=== PATIENT | female | born 1960 | race Caucasian/White ===

== ENCOUNTER 2022-11-29 09:52 | Emergency (ER) | payer OTHER, SELFPAY ==
--- NOTE | 2022-11-29 09:58 | ED.GENADULT ---
HPI - General Adult General Chief complaint: Neck Pain/Injury Stated complaint: congestion,pain behind rt ear Time Seen by Provider: 11/29/22 09:58 Source: patient Mode of arrival: ambulatory Limitations: no limitations History of Present Illness HPI narrative: 62-year-old female patient presents to the [facility] with complaints of pain to the head behind the right ear, sore throat, congestion, runny nose, sinus drainage and slight cough. Patient denies any fevers, body aches or chills that she is aware of. Patient has had a little bit of diarrhea but states she has been taking ibuprofen for the pain which can cause her stomach to be upset at times. Denies any abdominal pain, nausea or vomiting. Denies chest pain or shortness of breath. Patient states she has been taking ibuprofen for the pain , 400 mg about 3 times a day. Related Data Home Medications Medication Instructions Recorded Confirmed brimonidine 0.15 % eye drops 1 drp EACH EYE TID 11/29/22 11/29/22 ergocalciferol (vitamin D2) 1,250 1,250 mcg PO DAILY 11/29/22 11/29/22 mcg (50,000 unit) capsule latanoprost 0.005 % eye drops 1 drp EACH EYE DAILY 11/29/22 11/29/22 levothyroxine 150 mcg tablet 150 mcg PO DAILY 11/29/22 11/29/22 (Levoxyl) losartan 100 mg tablet 100 mg PO DAILY 11/29/22 11/29/22 Allergies Allergy/AdvReac Type Severity Reaction Status Date / Time No Known Allergies Allergy Verified 11/29/22 10:10 Review of Systems Review of Systems: CONSTITUTIONAL: Denies fever, chills, or sweats. EYES: Denies visual changes, redness, or discharge. ENT: Positive rhinorrhea, congestion, sore throat, denies otalgia. CARDIOVASCULAR: Denies chest pain, palpitations, or edema. RESPIRATORY: Denies cough or dyspnea. GASTROINTESTINAL: Denies abdominal pain, nausea, vomiting, or diarrhea. GENITOURINARY: Denies dysuria or hematuria. SKIN: Denies rash or itching. MUSCULOSKELETAL: Denies back pain, joint pain, or myalgia. NEUROLOGIC:positive headache, numbness, or weakness. PSYCHIATRIC: Denies anxiety or depression. [facility] Past Medical History Medical History Hemorrhoids Hypertension Hypothyroidism MRSA (methicillin resistant staph aureus) culture positive 2009, on buttocks crease Radiation therapy complication Rectal polyp Thyroid cancer Surgical History Surgical History H/O thyroidectomy H/O: hysterectomy Family History Family History Other Carcinoma of colon Comments At the time of my signature I agree with nursing past medical history, surgical, social, and family history. There is no relevant family history pertinent to the presenting complaint. Exam Narrative: GENERAL: Well-appearing, well-nourished, and in no acute distress. HEAD: Normocephalic, atraumatic. EYES: PERRLA and EOMI. ENT: Nares With erythema edema noted bilaterally, no rhinorrhea or epistaxis. Mucous membranes moist. posterior pharynx with no erythema, tonsillar swelling, exudates or lesions present. Postnasal drip is noted to the posterior pharynx. Bilateral TMs are clear no erythema or foreign bodies the canal. NECK: Supple. cervical lymphadenopathy noted on palpation. CHEST: Clear to auscultation. No respiratory distress. HEART: Regular rate and rhythm. No murmur heard. Normal peripheral pulses. ABDOMEN: Soft, nontender, nondistended, normal active bowel sounds. EXTREMITIES: Normal range of motion. No edema. SKIN: Warm, dry, no rash. NEURO: No focal deficits. Alert and oriented x3. Course Course Level of Care: Express Care Visit Reevaluation(s) Reevaluation #1: Re-evaluated patient and notify her that the strep, COVID a and influenza test we did today are all negative. Discussed with patient that she does have some mild cold symptoms which most likely means that she has a virus. I do notice that she
[2022-11-29 10:10] VITALS: BP 148/85; PULSE 105; RESP 18; TEMP 36.9; O2SAT 97
[2022-11-29 10:12] VITALS: BP 148/85; PULSE 105; RESP 18; TEMP 36.9; O2SAT 97
== END 2022-11-29 11:23 | disposition home or self-care (01) ==
PROVIDERS: Emergency Provider Nurse Practitioner Family; PCP Nurse Practitioner Family
DX: R59.0 Localized enlarged lymph nodes (principal); J06.9 Acute upper respiratory infection, unspecified; I10 Essential (primary) hypertension; E03.9 Hypothyroidism, unspecified; Z85.850 Personal history of malignant neoplasm of thyroid; Z20.822 Contact with and (suspected) exposure to COVID-19
CPT/HCPCS: 87081; 87426; 87804; 87880; 99213; C9803; G0463

== ENCOUNTER 2023-07-21 10:12 | Observation (INO) | payer OTHER, SELFPAY ==
[2023-07-21] VITALS (11 sets, daily range): BP systolic 109–159; BP diastolic 56–101; PULSE 62–100; RESP 13–21; TEMP 35.7–37.2; O2SAT 95–100; BMI 45.8
--- NOTE | ~2023-07-21 | CT_ITS ---
CT of the Abdomen and Pelvis: Indication: Abdominal pain Technique: 2.5 mm axial scans were obtained through the abdomen and pelvis following intravenous adm inistration of 100 cc of Omnipaque 350. Dose reduction technique was used on this scan by utilizing a utomated exposure control and iterative reconstruction technique. The dose-length product (DLP) was 1 499.69 mGy-cm. Findings: Scans through the lung bases are unremarkable. Small hepatic cyst present. The spleen, pancreas, adrenals and kidneys are within normal limits. No evidence of aortic aneurysm. No lymphadenopathy. There is cholelithiasis with gallbladder wall thick ening and possible minimal infiltration of the pericholecystic fat. No bowel obstruction or bowel wall thickening. There is no evidence to suggest acute appendicitis. Images through the pelvis were performed. Urinary bladder unremarkable. No pelvic mass seen. Trace pe lvic ascites. Impression: Cholelithiasis, with probable superimposed acute cholecystitis. Correlate clinically. Consider HIDA s can as indicated. Trace pelvic ascites. Reviewed, dictated and finalized at location . Impression: Cholelithiasis, with probable superimposed acute cholecystitis. Correlate clini boby. Consider HIDA scan as indicated. Trace pelvic ascites.
--- NOTE | ~2023-07-21 | US_ITS ---
EXAMINATION: US abdomen limited DATE: 07/21/2023 12:25 INDICATION: Cholecystitis TECHNIQUE: Multiple grayscale and Doppler ultrasound images of the abdomen were obtained. COMPARISON: CT dated 07/21/2023 FINDINGS: The pancreatic head and body are normal in appearance. The pancreatic tail is not visualized. Liver has normal contour, with a smooth surface. There is increased parenchymal echogenicity and coarsened echotexture consistent with diffuse hepatic steatosis. 1.6 similar anechoic hepatic cyst. No intrahe patic biliary duct dilation suspected. Portal venous flow was seen in the hepatopetal, normal directi on and has normal Doppler waveform. Large echogenic and shadowing gallstone at the neck of the gallbl adder. There is gallbladder wall thickening and a positive sonographic Manjarrez sign was reported by kelley kayaking instructor consistent with acute cholecystitis. The common bile duct measures 3-4 mm in maximal di ameter which is normal. Visualized portion of the right kidney demonstrates normal echogenicity and c ontour with no hydronephrosis. IMPRESSION: 1. Acute cholecystitis with potentially impacted gallstone at the neck of the gallbladder. Reviewed, dictated and finalized at location A. IMPRESSION: 1. Acute cholecystitis with potentially impacted gallstone at the neck of the g allbladder.
[2023-07-21 10:55] LABS: Basophils Percent Auto 0.2 % (0.2-1.2); Eosinophils Absolute Auto 0.1 K/mm3 (0-0.3); Eosinophils Percent Auto 0.8 % (0-4.4); Hematocrit 42.4 % (37.0-47.0); Hemoglobin 14.2 g/dL (12.0-15.0); Immature Granulocyte Absolute 0.05 K/mm3 (0.00-0.031); Immature Granulocyte Percent A 0.4 % (0-0.5); Lymphocytes Absolute Auto 1.21 K/mm3 (0.9-3.2); Lymphocytes Percent Auto 9.2 % (18.3-44.2); Mean Corpuscular HGB Conc 33.5 g/dl (32-36); Mean Corpuscular Volume 86.7 fl (80-100); Mean Platelet Volume 12.9 fl (7.4-10.4); Monocytes Absolute Auto 1.3 K/mm3 (0.1-0.6); Monocytes Percent Auto 9.8 % (2.6-8.5); Neutrophils Absolute Auto 10.5 K/mm3 (1.3-6.7); Neutrophils Percent Auto 79.6 % (45.5-73.1); Platelet Count Result 289 k/mm3 (150-375); Red Blood Count 4.89 M/mm3 (4.2-5.4); Red Cell Distribution Width 12.9 % (11.5-14.5); White Blood Count 13.2 K/mm3 (4.5-10.0)
--- NOTE | 2023-07-21 11:01 | ED.GENADULT ---
HPI - General Adult General Chief complaint: Abdominal Pain <Jimy Eason PA-C - Last Filed: 07/21/23 18:08> Stated complaint: abd pain <Jimy Eason PA-C - Last Filed: 07/21/23 18:08> Time Seen by Provider: 07/21/23 10:29 <Jimy Eason PA-C - Last Filed: 07/21/23 18:08> Source: patient <PRISCILA Gomez Last Filed: 07/21/23 18:08> Mode of arrival: ambulatory <PRISCILA Gomez Last Filed: 07/21/23 18:08> Limitations: no limitations <Jimy Eason PA-C - Last Filed: 07/21/23 18:08> History of Present Illness HPI narrative: This is a 62-year-old female with PMH of HTN, HLD, hypothyroidism who presents to the ED with chief complaint of abdominal pain beginning today and nausea and vomiting for the past 3 days. She states she was initially concerned for food poisoning as she was having a lot of N/V and loose stools Wednesday and Wednesday. Reports she has been feeling dehydrated as she has not felt like eating or drinking much. She states she is no longer vomiting but now today she is starting to have upper abdominal pain. She is unsure if it is from all of the retching she was doing over the past few days. Denies continuous bouts of diarrhea but has more occasional loose stools. She states that she really only has the abdominal pain when she tries to sit up or stand up. No association with oral intake. Endorses malaise. Endorses urinary discoloration but denies any other urinary symptoms. Reports feeling bloated. Denies fevers, chills, chest pain, shortness of breath, cough, GI bleeding symptoms. Past surgical history of hysterectomy, . <PRISCILA Gomez Last Filed: 07/21/23 18:08> Related Data Home medications: Home Medications Medication Instructions Recorded Confirmed brimonidine 0.15 % eye drops 1 drp EACH EYE TID 11/29/22 07/21/23 ergocalciferol (vitamin D2) 1,250 1,250 mcg PO DAILY 11/29/22 07/21/23 mcg (50,000 unit) capsule latanoprost 0.005 % eye drops 1 drp EACH EYE HS 11/29/22 07/21/23 levothyroxine 150 mcg tablet 150 mcg PO DAILY 11/29/22 07/21/23 (Levoxyl) losartan 100 mg tablet 100 mg PO HS 11/29/22 07/21/23 rosuvastatin 10 mg tablet 10 mg PO DAILY 07/21/23 07/21/23 <Jimy Eason PA-C - Last Filed: 07/21/23 18:08> Allergies/adverse reactions: Allergies Allergy/AdvReac Type Severity Reaction Status Date / Time No Known Allergies Allergy Verified 07/21/23 14:36 <PRISCILA Gomez Last Filed: 07/21/23 18:08> Review of Systems Review of Systems: All systems as dictated in HPI <PRISCILA Gomez Last Filed: 07/21/23 18:08> [facility] Past Medical History Medical History: Medical History (Updated 07/21/23 @ 14:15 by YRN Mcmahan) Hemorrhoids Hypertension Hypothyroidism MRSA (methicillin resistant staph aureus) culture positive 2009, on buttocks crease Radiation therapy complication Rectal polyp Thyroid cancer <Jimy Eason PA-C - Last Filed: 07/21/23 18:08> Surgical History Surgical History: Surgical History H/O thyroidectomy H/O: hysterectomy History of section <Jimy Eason PA-C - Last Filed: 07/21/23 18:08> Family History Family History: Family History Other Carcinoma of colon <Jimy Eason PA-C - Last Filed: 07/21/23 18:08> Social History Social History: Social History Smoking status: Never smoker Alcohol intake: never Substance use: never Additional living arrangements comments: Lives with significant other Occupation/Education: occupation Gender identity (if verbalized by the patient): Female <Jimy Eason PA-C - Last Filed: 07/21/23 18:08> Exam Narrative: GENERAL: Well-appearing, well-nourished, and in no acute distress. HEAD: Normocephalic, atra
[2023-07-21 11:06] LABS: Alanine Aminotransferase 22 U/L (6-35); Albumin Level 4.4 g/dL (3.5-5.1); Alkaline Phosphatase 83 U/L (38-126); Anion Gap 9 mmol/L (8-16); Aspartate Amino Transferase 23 U/L (14-36); Bilirubin,Total 1.2 mg/dL (0.2-1.3); Blood Urea Nitrogen 7 mg/dL (7-17); Calcium 8.9 mg/dL (8.4-10.2); Carbon Dioxide 27 mmol/L (22-30); Chloride 98 mmol/L (98-107); Estimated CRCL calculation 122 ml/min; Estimated Glomerular Filt Rate > 60; Glucose 141 mg/dL (65-110); Lipase 22 U/L (23-300); Potassium 3.7 mmol/L (3.4-5.0); Sodium 134 mmol/L (137-145)
[2023-07-21] MEDS: SODIUM CHLORIDE 0.9% IV 1,000 ML 999 ML IV CONT (11:09)
[2023-07-21 11:20] LABS: Appearance Urine Slightly Cloudy (Clear); Bilirubin Urine 2+ (Negative); Blood Urine 2+ (Negative); Color Urine Dark Yellow (Yellow); Glucose Urine UA Trace mg/dL (Negative); Ketones Urine 1+ mg/dL (Negative); Leukocyte Esterase Ur Negative LEU/UL (Negative); Nitrate Urine Negative (Negative); Protein Urine 3+ mg/dL (Negative); Specific Grav Ur >= 1.030 (1.001-1.035); Urobilinogen Urine 0.2 mg/dL (<2.0); pH Urine 6.5 (5.0-9.0)
[2023-07-21 11:50] LABS: Bacteria Urine Rare /hpf; Hyaline Casts Urine Present /lpf; Mucus Urine Present /lpf; Need Manual Microscopic Reviewed; Non Pathogenic Casts >20; Squamous Epithelial Cell Urine Moderate /hpf (Few)
[2023-07-21 11:54] LABS: Add Urine Microscopic? YES
[2023-07-21] MEDS: PIPERACILLN/TAZ 3.375GM/NS50ML 3.375 GM/50 ML BAG IVPB ×3 (12:54→23:48)
[2023-07-21] MEDS: PANTOPRAZOLE SODIUM IV 40 MG VIAL IV PUSH (13:33)
[2023-07-21] MEDS: MORPHINE SULFATE (*CRX) 4 MG/ML INJ IV PUSH (13:36)
[2023-07-21] MEDS: ONDANSETRON INJ 4 MG/2 ML VIAL IV PUSH (13:38)
--- NOTE | 2023-07-21 13:42 | PCCCNOTE ---
met with patient bedside patient is alert and oriented x 4, I ADL and lives in Independent housing community called [place]. Patient plans o return home however was very interested in hospice care. CC also spoke with patients daughter Maricel [phone] her way to the hospital. she was also in agreement with meeting hospice. patient had no preference of hospice agency, CC sent referral to [facility] hospice. spoke with jada from [facility], she states that liss will meet with patient within the hour. CC will continue to follow for any needs that arise.
--- NOTE | 2023-07-21 14:07 | PM.IMHP ---
H&P: HPI History of Present Illness Date/Time: 07/21/23 14:07 Chief Complaint: RUQ abdominal pain Narrative: This is a 62-year-old morbidly obese woman with a history of hypertension who presented to the emergency department today with right upper quadrant abdominal pain for nearly 3 days. She had a sudden onset of epigastric abdominal pain 3 nights ago around 7:30 p.m.. This was after eating popcorn and ice cream in the afternoon. She developed nausea and vomiting that night. She had multiple episodes of vomiting for the next 2 days and was unable to eat. Her epigastric pain migrated to the right upper quadrant and persisted for the next few days. Initially she thought she had food poisoning, but with her symptoms lasting more than 2 days and still having the right upper quadrant abdominal pain, she decided to present to the ER for evaluation. Labs showed a white blood cell count [id number], normal LFTs, and normal lipase. CT scan of the abdomen and pelvis showed cholelithiasis with probable superimposed acute cholecystitis. Right upper quadrant ultrasound showed acute cholecystitis with potentially an impacted gallstone at the neck of the gallbladder. She is now seen in the ER for surgical evaluation of acute cholecystitis. She additionally admits to having frequent diarrhea after fatty meals and intermittent episodes of heartburn over the past year that she has ignored. She denies having an episode of pain like this in the past. Previous abdominal surgeries include an open partial hysterectomy and delivery. Review of Systems Review of Systems: All systems reviewed & are unremarkable except as noted in HPI and below Constitutional: Constitutional: Reports no additional constitutional complaints, Denies chills, Denies fatigue and Denies fever(s) Eyes: Eyes: Reports no additional eye complaints ENT: Reports system reviewed and no additional complaints, except as documented and Denies dizziness Cardiovascular: Cardiovascular: Reports no additional cardiovascular complaints, Denies chest pain and Denies leg edema Respiratory: Respiratory: Reports no additional respiratory complaints, Denies cough and Denies dyspnea Gastrointestinal: Gastrointestinal: Reports as per HPI, Reports no additional gastrointestinal complaints, Reports abdominal pain, Denies melena, Denies hematochezia, Denies coffee ground emesis, Denies constipation, Reports diarrhea, Reports nausea, Reports vomiting and Denies hematemesis Genitourinary: Genitourinary: Reports no additional female genitourinary complaints and Denies dysuria Musculoskeletal: Musculoskeletal: Reports no additional musculoskeletal complaints, Denies abnormal gait and Denies joint swelling Integumentary/Breasts: Skin/Breast: Reports system reviewed and no additional complaints, except as docu and Denies jaundice Neurologic: Reports system reviewed and no additional complaints, except as documented, Denies headache(s), Denies focal weakness, Denies numbness and Denies tingling PMFSH Past Medical History Medical History (Updated 07/21/23 @ 14:15 by YRN Mcmahan) Hemorrhoids Hypertension Hypothyroidism MRSA (methicillin resistant staph aureus) culture positive 2009, on buttocks crease Radiation therapy complication Rectal polyp Thyroid cancer Surgical History Surgical History H/O thyroidectomy H/O: hysterectomy History of section Family History Family History Other Carcinoma of colon Social History Social History Smoking status: Never smoker Alcohol intake: never Substance use: never Additional living arrangements comments: Lives with significant other Occupation/Education: occupation Gender identity (if verbalized by the patient): Female Meds Home Medications and Allergi
--- NOTE | 2023-07-21 14:23 | ECG_ITS ---
Measurements Intervals [place] Rate: 86 P: 35 MO: 149 QRS: -30 QRSD: 100 T: 15 QT: 379 QTc: 453 Interpretive Statements SINUS RHYTHM BORDERLINE LEFT AXIS DEVIATION [QRS AXIS < -20] MINIMAL VOLTAGE CRITERIA FOR LVH, CONSIDER NORMAL VARIANT [MEETS CRITERIA IN ONE OF: R(aVL), S(V1), R(V5), R(V5/V6)+S(V1)] POOR R-WAVE PROGRESSION ABNORMAL ECG NO PREVIOUS ECG AVAILABLE FOR COMPARISON Electronically Signed On 07-21-2023 15:26:35 CDT by Robin Brand M.D.
[2023-07-21] MEDS: LACTATED RINGERS 1,000 ML 30 ML IV CONT ×2 (14:50→17:22)
--- NOTE | 2023-07-21 14:53 | WPDANESEPPF ---
Anes - Initial Pre Proc Eval Procedure: Operation Date: 07/21/23 15:00 Proposed Procedures p Laparoscopic Cholecystectomy; Possible Open - Gopi Parmar MD Date/Time: 07/21/23 14:53 Surgeon: Gopi Parmar MD Pre Op Diagnosis: acute cholecystitis Patient Data Age: 62 Gender: F Height: 1.7 m Weight: 134.7 kg Last Vital Signs Temp 36.8 C 07/21/23 10:27 Pulse 86 07/21/23 12:56 Resp 18 07/21/23 12:56 BP 149/69 H 07/21/23 12:56 Pulse Ox 98 07/21/23 12:56 O2 Del Method Room Air 07/21/23 10:27 Allergies Allergy/AdvReac Type Severity Reaction Status Date / Time No Known Allergies Allergy Verified 07/21/23 14:36 Home Medications Medication Instructions Recorded Confirmed Type brimonidine 0.15 % eye drops 1 drp EACH EYE TID 11/29/22 11/29/22 History ergocalciferol (vitamin D2) 1,250 1,250 mcg PO DAILY 11/29/22 11/29/22 History mcg (50,000 unit) capsule latanoprost 0.005 % eye drops 1 drp EACH EYE DAILY 11/29/22 11/29/22 History levothyroxine 150 mcg tablet 150 mcg PO DAILY 11/29/22 11/29/22 History (Levoxyl) losartan 100 mg tablet 100 mg PO DAILY 11/29/22 11/29/22 History Laboratory Tests 07/21/23 07/21/23 10:49 11:07 WBC 13.2 H K/mm3 (4.5-10.0) RBC 4.89 M/mm3 (4.2-5.4) Hgb 14.2 g/dL (12.0-15.0) Hct 42.4 % (37.0-47.0) MCV 86.7 fl (80-100) MCH 29.0 pg (26-34) MCHC 33.5 g/dl (32-36) RDW 12.9 % (11.5-14.5) Plt Count 289 k/mm3 (150-375) MPV 12.9 H fl (7.4-10.4) Immature Gran % (Auto) 0.4 % (0-0.5) Neut % (Auto) 79.6 H % (45.5-73.1) Lymph % (Auto) 9.2 L % (18.3-44.2) Spencer % (Auto) 9.8 H % (2.6-8.5) Eos % (Auto) 0.8 % (0-4.4) Baso % (Auto) 0.2 % (0.2-1.2) Lymph # (Auto) 1.21 K/mm3 (0.9-3.2) Spencer # (Auto) 1.3 H K/mm3 (0.1-0.6) Eos # (Auto) 0.1 K/mm3 (0-0.3) Baso # (Auto) 0.0 K/mm3 (0.0-0.1) Abs Immat Gran (auto) 0.05 H K/mm3 (0.00-0.031) Absolute Neuts (auto) 10.5 H K/mm3 (1.3-6.7) Absolute Nucleated RBC 0.0 K/mm3 (0.0-0.012) Nucleated RBC % 0.0 % (0.0-0.2) Sodium 134 L mmol/L (137-145) Potassium 3.7 mmol/L (3.4-5.0) Chloride 98 mmol/L (98-107) Carbon Dioxide 27 mmol/L (22-30) Anion Gap 9 mmol/L (8-16) BUN 7 mg/dL (7-17) Creatinine 0.60 L mg/dL (0.7-1.0) Estim Creat Clear Calc 122 ml/min Estimated GFR > 60 (59 - ) Glucose 141 H mg/dL (65-110) Calcium 8.9 mg/dL (8.4-10.2) Total Bilirubin 1.2 mg/dL (0.2-1.3) AST 23 U/L (14-36) ALT 22 U/L (6-35) Alkaline Phosphatase 83 U/L (38-126) Total Protein 8.0 g/dL (6.3-8.2) Albumin 4.4 g/dL (3.5-5.1) Lipase 22 L U/L (23-300) Urine Color Dark yellow (Yellow) Urine Appearance Slightly cloudy (Clear) Urine pH 6.5 (5.0-9.0) Ur Specific [place] >= 1.030 (1.001-1.035) Urine Protein 3+ H mg/dL (Negative) Urine Glucose (UA) Trace H mg/dL (Negative) Urine Ketones 1+ H mg/dL (Negative) Ur Blood (Man) 2+ H (Negative) Urine Nitrate Negative (Negative) Urine Bilirubin 2+ H (Negative) Urine Urobilinogen 0.2 mg/dL (<2.0) Add Ur Microanalysis Reviewed Leukocyte Esterase Rfl Negative LUCINA/UL (Negative) Urine RBC 11-20 H /hpf (0-2) Urine WBC 11-20 H /hpf Ur Squamous Epith Cells Moderate /hpf (Few) Urine Bacteria Rare /hpf Urine Casts >20 Hyaline Casts Present /lpf (None) Urine Mucus Present /lpf Patient hx anesthesia problems: none Family hx anesthesia problems: none Results Review: All pre-operative results and documents have been reviewed as part of the pre-operative evaluation. [facility] [place]
--- NOTE | 2023-07-21 15:16 | WPDHPUPDATE1 ---
History and Physical Update Update Date/Time: 07/21/23 15:16 History and Physical has been reviewed, including an updated exam of the patient. There are NO changes in the patient's condition. Risks, benefits, and alternatives have been discussed and questions answered. Patient agrees to proceed with procedure.
[2023-07-21] MEDS: KETOROLAC 15 MG/ML VIAL (*BKC) IV PUSH (15:21)
[2023-07-21] MEDS: ACETAMINOPHEN 500 MG TABLET 1000 MG PO (15:21)
[2023-07-21] MEDS: BUPivacaine HCL 0.5% 10 ML AMP 20 ML INFILTRATE ×2 (15:54→16:54)
[2023-07-21] MEDS: LIDO 1%/EPINEPHRINE 1:100,000 20 ML VIAL INFILTRATE (15:55)
--- NOTE | 2023-07-21 17:19 | W.PM.PROC2 ---
Procedure Note - Detailed Date of Procedure 07/21/23 Pre-op Diagnosis acute cholecystitis Post-op Diagnosis Other (Acute cholecystitis secondary to cholelithiasis.) Procedure Performed Laparoscopic cholecystectomy. Surgeon Gopi Parmar MD Anesthesia General Indications Patient is a 62-year-old white female who has had right upper quadrant pain for about 3 days. She presents to the emergency room with the worsening pain and leukocytosis of 13,000. CT scan abdomen pelvis as well as an abdominal ultrasound showed a large gallstone impacted within the neck of the gallbladder with acute inflammatory change of the gallbladder wall consistent with acute cholecystitis. She presents now for emergent laparoscopic cholecystectomy. Findings Patient had a very inflamed distended gallbladder which was acutely inflamed. A large gallstone measuring at least 3cm in diameter was impacted within the neck of the gallbladder. No gangrene of the gallbladder wall was seen and no linda cholecystic abscess was seen. Description of Procedure After informed consent was obtained patient brought to the operating room where she was placed supine position and general endotracheal anesthesia was administered. The abdomen was then prepped and draped usual sterile fashion. A time-out was then performed correctly identifying the patient as well as procedure to be performed. She was already on scheduled IV antibiotics. I entered the abdomen the left upper quadrant utilizing a 5mm Optiview port. Once inside the abdomen insufflated to adequate pneumoperitoneum of 15mmHg of CO2. There were few adhesions of omentum to the abdominal wall just below the umbilicus. I then placed a 5mm Optiview port just cephalad of the umbilicus staying away from these omental adhesions under direct visualization. I then placed a 10mm epigastric trocar port and 2 right lateral subcostal 5mm trocar ports all under direct visualization. The gallbladder was visualized the right upper quadrant. There were omental adhesions of the gallbladder wall and there was acute inflammation the gallbladder wall with edema and erythema. The gallbladder was tense and a large gallstone appeared to be impacted within the neck of the gallbladder. In order to hold the gallbladder laparoscopic grasper I then decompressed the gallbladder with a laparoscopic decompressing needle. Thick dark appearing bile was aspirated. Now the gallbladder was decompressed I was able to hold with a laparoscopic grasper and elevated the gallbladder over the right half liver towards the right shoulder. I then proceeded to hold the gallbladder in the midportion is stripped down the omental adhesions until I could see the infundibulum of the gallbladder. I then repositioned the grasper onto the infundibular gallbladder continued to strip down the omental adhesions and visceral peritoneum off of the infundibular gallbladder to identify the cystic duct. The cystic duct was then dissected out circumferentially. Cystic artery was identified and was dissected out circumferentially as well. Posterior wall the gallbladder at the infundibulum dissected free of the liver until the critical view was obtained. At this point I then placed 2 clips proximally cystic duct and 2 clips distally high on infundibular gallbladder and the cystic duct was then divided with Endo Talia. A similar fashion cystic artery is clipped and divided as well. The gallbladder was then resected off the liver utilizing the cautery. Once the gallbladder was freed from the liver is placed into an Endo-Catch bag and brought out through the epigastric port site. Gallbladder was palpated had a single large gallstone measuring at least 3cm in diameter. The gallbladder gallstone or sent to pathology for inked for examination. I then irrigated out the right upper quadrant abdomen gallbladder fossa copious sterile saline solution. Hemostasis in liver bed was then achieved utilized electrocautery
[2023-07-21] MEDS: SODIUM CHLORIDE 0.9% IV 1,000 ML 125 ML IV CONT (18:19)
[2023-07-21] MEDS: HYDROcodone/acetaminophen (*CRX) 5-325 MG TABLET 1 TAB PO ×2 (18:29→23:36)
[2023-07-21] MEDS: LOSARTAN POTASSIUM 100 MG TABLET PO (21:39)
[2023-07-21] MEDS: LATANOPROST 0.005% OP SOLN 2.5 ML BTL 1 DROP EACH EYE (21:39)
[2023-07-22] VITALS: BP 136/68; PULSE 73; RESP 14; TEMP 36; O2SAT 93
[2023-07-22 04:00] VITALS: BP 143/61; PULSE 91; RESP 18; TEMP 36; O2SAT 94
[2023-07-22] MEDS: SODIUM CHLORIDE 0.9% IV 1,000 ML 125 ML IV CONT (05:04)
[2023-07-22] MEDS: HYDROcodone/acetaminophen (*CRX) 5-325 MG TABLET 1 TAB PO (05:43)
[2023-07-22] MEDS: LEVOTHYROXINE SODIUM 150 MCG TABLET PO (05:44)
[2023-07-22] MEDS: PIPERACILLN/TAZ 3.375GM/NS50ML 3.375 GM/50 ML BAG IVPB ×2 (05:46→12:31)
[2023-07-22 06:05] LABS: Basophils Percent Auto 0.3 % (0.2-1.2); Hematocrit 42.5 % (37.0-47.0); Hemoglobin 12.5 g/dL (12.0-15.0); Immature Granulocyte Absolute 0.04 K/mm3 (0.00-0.031); Immature Granulocyte Percent A 0.4 % (0-0.5); Lymphocytes Absolute Auto 0.93 K/mm3 (0.9-3.2); Lymphocytes Percent Auto 9.4 % (18.3-44.2); Mean Corpuscular HGB Conc 29.4 g/dl (32-36); Mean Corpuscular Hemoglobin 29.6 pg (26-34); Mean Corpuscular Volume 100.7 fl (80-100); Mean Platelet Volume 12.5 fl (7.4-10.4); Monocytes Absolute Auto 0.9 K/mm3 (0.1-0.6); Monocytes Percent Auto 8.6 % (2.6-8.5); Neutrophils Percent Auto 81.3 % (45.5-73.1); Platelet Count Result 197 k/mm3 (150-375); Red Blood Count 4.22 M/mm3 (4.2-5.4); Red Cell Distribution Width 12.8 % (11.5-14.5); White Blood Count 9.9 K/mm3 (4.5-10.0)
[2023-07-22 06:58] LABS: Alanine Aminotransferase 37 U/L (6-35); Albumin Level 3.1 g/dL (3.5-5.1); Alkaline Phosphatase 70 U/L (38-126); Anion Gap 8 mmol/L (8-16); Aspartate Amino Transferase 50 U/L (14-36); Bilirubin,Total 0.8 mg/dL (0.2-1.3); Blood Urea Nitrogen 9 mg/dL (7-17); Calcium 8.1 mg/dL (8.4-10.2); Carbon Dioxide 22 mmol/L (22-30); Chloride 105 mmol/L (98-107); Estimated CRCL calculation 121 ml/min; Estimated Glomerular Filt Rate > 60; Glucose 116 mg/dL (65-110); Potassium 4.1 mmol/L (3.4-5.0); Sodium 135 mmol/L (137-145)
[2023-07-22] MEDS: ROSUVASTATIN 10 MG TABLET PO (08:26)
--- NOTE | 2023-07-22 10:29 | WPDANESPN ---
Anes - Prog Note Post-Op Date/Time: 07/22/23 10:29 Cardiovascular status: normal Respiratory status: normal Airway patency: baseline Mental status: baseline Post-Op hydration status: normal Vital Signs: Last Vital Signs Temp 36.0 C L 07/22/23 04:00 Pulse 91 07/22/23 04:00 Resp 18 07/22/23 04:00 BP 143/61 H 07/22/23 04:00 Pulse Ox 94 07/22/23 04:00 O2 Del Method Room Air 07/22/23 08:00 O2 Flow Rate 8 07/21/23 17:20 Pain Score (VAS): 01/29 I/O: Intake & Output 07/21/23 07/22/23 07/22/23 23:59 07:59 15:59 Intake Total 450 1050 280 Output Total 15 Balance 435 1050 280 Laboratory Tests 07/22/23 05:56 07/22/23 05:56 07/21/23 07/21/23 07/21/23 10:49 11:07 14:38 WBC 13.2 H RBC 4.89 Hgb 14.2 Hct 42.4 MCV 86.7 MCH 29.0 MCHC 33.5 RDW 12.9 Plt Count 289 MPV 12.9 H Immature Gran % (Auto) 0.4 Neut % (Auto) 79.6 H Lymph % (Auto) 9.2 L Sand[place] % (Auto) 9.8 H Eos % (Auto) 0.8 Baso % (Auto) 0.2 Lymph # (Auto) 1.21 Sand[place] # (Auto) 1.3 H Eos # (Auto) 0.1 Baso # (Auto) 0.0 Abs Immat Gran (auto) 0.05 H Absolute Neuts (auto) 10.5 H Absolute Nucleated RBC 0.0 Nucleated RBC % 0.0 Sodium 134 L Potassium 3.7 Chloride 98 Carbon Dioxide 27 Anion Gap 9 BUN 7 Creatinine 0.60 L Estim Creat Clear Calc 122 Estimated GFR > 60 Glucose 141 H Calcium 8.9 Total Bilirubin 1.2 AST 23 ALT 22 Alkaline Phosphatase 83 Total Protein 8.0 Albumin 4.4 Lipase 22 L Urine Color Dark yellow Urine Appearance Slightly cloudy Urine pH 6.5 Ur Specific Onaway >= 1.030 Urine Protein 3+ H Urine Glucose (UA) Trace H Urine Ketones 1+ H Ur Blood (Man) 2+ H Urine Nitrate Negative Urine Bilirubin 2+ H Urine Urobilinogen 0.2 Add Ur Microanalysis Reviewed Leukocyte Esterase Rfl Negative Urine RBC 11-20 H Urine WBC 11-20 H Ur Squamous Epith Cells Moderate Urine Bacteria Rare Urine Casts >20 Hyaline Casts Present Urine Mucus Present Blood Type O Positive Antibody Screen Negative 07/22/23 05:56 WBC 9.9 RBC 4.22 Hgb 12.5 Hct 42.5 MCV 100.7 H D MCH 29.6 MCHC 29.4 L RDW 12.8 Plt Count 197 MPV 12.5 H Immature Gran % (Auto) 0.4 Neut % (Auto) 81.3 H Lymph % (Auto) 9.4 L Sand[place] % (Auto) 8.6 H Eos % (Auto) 0.0 Baso % (Auto) 0.3 Lymph # (Auto) 0.93 [place] # (Auto) 0.9 H Eos # (Auto) 0.0 Baso # (Auto) 0.0 Abs Immat Gran (auto) 0.04 H Absolute Neuts (auto) 8.0 H Absolute Nucleated RBC 0.0 Nucleated RBC % 0.0 Sodium 135 L Potassium 4.1 Chloride 105 Carbon Dioxide 22 Anion Gap 8 BUN 9 Creatinine 0.60 L Estim Creat Clear Calc 121 Estimated GFR > 60 Glucose 116 H Calcium 8.1 L Total Bilirubin 0.8 AST 50 H ALT 37 H Alkaline Phosphatase 70 Total Protein 6.0 L Albumin 3.1 L Lipase Urine Color Urine Appearance Urine pH Ur Specific [place] Urine Protein Urine Glucose (UA) Urine Ketones Ur Blood (Man) Urine Nitrate Urine Bilirubin Urine Urobilinogen Add Ur Microanalysis Leukocyte Esterase Rfl Urine RBC Urine WBC Ur Squamous Epith Cells Urine Bacteria Urine Casts Hyaline Casts Urine Mucus Blood Type Antibody Screen Post-procedural complaints: none Patient Feedback: Patient satisfied with anesthetic care.
[2023-07-22] MEDS: IBUPROFEN 600 MG TABLET PO (12:29)
[2023-07-22] MEDS: BRIMONIDINE TARTRATE 0.15% 5 ML OPHTH SOLN 1 DROP EACH EYE (12:34)
[2023-07-22 14:33] VITALS: BP 123/54; PULSE 78; RESP 16; TEMP 36.8; O2SAT 93
--- NOTE | 2023-07-22 15:10 | PM.DS ---
DS: Admitting Diagnosis Discharge Date 07/22/2023 Admitting Diagnosis Acute calculous cholecystitis DS: Discharge Diagnosis Discharge Diagnosis (1) Acute cholecystitis: Code(s): K81.0 - Acute cholecystitis Status: Acute (2) Obesity, morbid, BMI 40.0-49.9: Code(s): E66.01 - Morbid (severe) obesity due to excess calories Status: Acute DS: Summary Hospital Course Reason for hospitalization: This is a 62-year-old obese woman with a history of hypertension who presented to the ER yesterday with right upper quadrant abdominal pain for 2-3 days. She had associated nausea and vomiting. Workup in the ED showed mild leukocytosis with normal LFTs and evidence of acute calculous cholecystitis on CT and ultrasound. She was admitted for surgical evaluation. Hospital Course: The patient was started on IV Zosyn, IV fluids, analgesics, antiemetics, and made NPO. She was taken to the OR yesterday afternoon and underwent a laparoscopic cholecystectomy. She was found to have a very inflamed distended gallbladder with a large gallstone measuring at least 3 cm impacted within the neck of the gallbladder. No gangrene or abscess. A BELGICA drain was placed during surgery. she was admitted to the medical floor for observation overnight. Her pain has been well controlled with current analgesics. Her BELGICA drain has serosanguineous drainage this morning. Labs were repeated postop day 1 with a white blood cell count down to 9000. LFT showed a very slight bump in her AST likely from surgery. She is tolerating ambulating in the room. Her diet was slowly advanced to a low-fat diet. She has tolerated her diet well. She is voiding without difficulty. She is stable for discharge today. Status at Discharge Functional status at discharge: independent ambulation Overall status at discharge: patient is progressing back to baseline Time Spent with Patient Time attestation: Total time spent providing and/or coordinating discharge services: Exam Const: General: comfortable and no acute distress Nutritional Appearance: obese Orientation/consciousness: patient oriented x3 GI: Inspection: non-distended, incision (incisions dry and intact) and other (BELGICA drain with serosanguineous drainage) GI Palp: Yes Soft to palpation, Yes Tenderness to palpation present (GI) (incisional) and No Guarding due to palpation present (GI) Auscultation: normal bowel sounds Neuro: General: moves all extremities and no focal motor deficits Extrem: General: no calf tenderness and no edema Psych: Mental Status: mental status grossly normal Insight: Good insight present (Psych) DS: Data Data Completed and Pending Pending studies at discharge: Pending at discharge 07/21/23 15:49 Surgical [PTH] Routine Labs on day of discharge: Labs from last 24 hours 07/22/23 07/21/23 05:56 14:38 WBC 9.9 RBC 4.22 Hgb 12.5 Hct 42.5 MCV 100.7 H D MCH 29.6 MCHC 29.4 L RDW 12.8 Plt Count 197 MPV 12.5 H Immature Gran % (Auto) 0.4 Neut % (Auto) 81.3 H Lymph % (Auto) 9.4 L [place] % (Auto) 8.6 H Eos % (Auto) 0.0 Baso % (Auto) 0.3 Lymph # (Auto) 0.93 [place] # (Auto) 0.9 H Eos # (Auto) 0.0 Baso # (Auto) 0.0 Abs Immat Gran (auto) 0.04 H Absolute Neuts (auto) 8.0 H Absolute Nucleated RBC 0.0 Nucleated RBC % 0.0 Sodium 135 L Potassium 4.1 Chloride 105 Carbon Dioxide 22 Anion Gap 8 BUN 9 Creatinine 0.60 L Estim Creat Clear Calc 121 Estimated GFR > 60 Glucose 116 H Calcium 8.1 L Total Bilirubin 0.8 AST 50 H ALT 37 H Alkaline Phosphatase 70 Total Protein 6.0 L Albumin 3.1 L Blood Type O Positive Antibody Screen Negative Procedures/Treatments: Procedures Operation Date: 07/21/23 15:00 Actual Procedure Side Surgeon p Laparoscopic Cholecystectomy; Possible Open Not Applicable Gopi Parmar MD Imaging Radiologist's impression: ITS Impressions Abdomen/
--- NOTE | 2023-07-22 15:17 | PC.NURSE ---
Incentive spirometer training given to patient. Return demonstration by patient. All discharge instructions given as well.
== END 2023-07-22 15:40 | disposition home or self-care (01) ==
LOC: ANHED 13:27 → ANH3MEDSUR 14:45
PROVIDERS: Emergency Medicine; Admitting Provider Surgery; Emergency Provider Physician Assistant; PCP Nurse Practitioner Family; Visit Provider Surgery
PROC: 0FT44ZZ Resection of Gallbladder, Percutaneous Endoscopic Approach (ICD-10-PCS; CPT 47562; principal; 2023-07-21 15:00)
DX: K80.00 Calculus of gallbladder with acute cholecystitis without obstruction (principal); K76.89 Other specified diseases of liver; E66.01 Morbid (severe) obesity due to excess calories; Z68.42 Body mass index [BMI] 45.0-49.9, adult; I10 Essential (primary) hypertension; E89.0 Postprocedural hypothyroidism; R94.31 Abnormal electrocardiogram [ECG] [EKG]; Z79.899 Other long term (current) drug therapy
CPT/HCPCS: 47562; 36415; 74177; 76705; 80053; 81001; 83690; 85025; 86850; 86900; 86901; 87086; 87088; 88304; 93005; 96361; 96365; 99285; A9270; C1713; C9113; G0378; J1100; J1885; J2250; J2270; J2405; J2543; J2704; J3010; J7030; J7120; Q9967

== ENCOUNTER 2025-03-05 08:55 | Outpatient (CLI) | payer OTHER, SELFPAY ==
--- NOTE | ~2025-03-05 | MM_ITS ---
EXAMINATION: MM screening [facility] BI w [place] HISTORY: Screening TECHNIQUE: Craniocaudal and mediolateral oblique 3-D tomosynthesis images were obtained and synthetic 2-D images were generated. CAD analysis was submitted and interpreted. COMPARISON: No prior mammogram is available for comparison at this institution. BREAST PARENCHYMAL COMPOSITION: Not Dense: The breasts are almost entirely fatty. FINDINGS: There is no evidence of suspicious mass, calcification, or architectural distortion to sugg est malignancy in either breast. There has been no suspicious interval change. IMPRESSION: 1. No mammographic evidence of malignancy. 2. Recommend routine screening mammography in one year. BI-RADS Category 1: Negative Reviewed, dictated and finalized at location B.
--- OUTSIDE RECORDS SUMMARY | 2025-03-05 09:27 | XMS_ITS | Encounter Summary ---
Author Organization [employer] Address 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
--- OUTSIDE RECORDS SUMMARY | 2025-03-05 09:27 | XMS_ITS | Encounter Summary ---
Author Organization [facility] Address [address] [place] [address] Care Team Providers Care Boiler Plant Worker Name Role Phone Hu Denson MD Primary Care Provider [phone] Encounter Details Date Type Department Care Team (Late st Contact Info) Description 01/28/2004 Outpatient Historical [facility]USH FINISHER - [address] [facility] [address] [place] [address] Travis Wick MD [address] [facility] [address] [address] [address] Social History Tobacco Use Types Packs/Day Years Used Date Smoking Tobacco: Never Assessed Comments Unknown Sex and Gender Information Value Date Recorded Sex Assigned at Not on file 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
--- OUTSIDE RECORDS SUMMARY | 2025-03-05 09:27 | XMS_ITS | Encounter Summary ---
Author Organization [employer] Address [address] [place] [address] Care Team Providers Care Grain Scooper Name Role Phone Hu Denson MD Primary Care Provider [phone] Encounter Details Date Type Department Care Team (Late st Contact Info) Description 06/27/2004 Outpatient Historical [facility] Vernon Manriquez MD [address] [facility] 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
--- OUTSIDE RECORDS SUMMARY | 2025-03-05 09:27 | XMS_ITS | Encounter Summary ---
Author Organization [facility] Address [address] [place] [address] Care Team Providers Care Stencil Cutter Machine Name Role Phone Hu Denson MD Primary Care Provider [phone] Encounter Details Date Type Department Care Team (Latest Contact Info) Description 06/27/2004 Outpatient Historical [facility] Manriquez, Vernon Butler MD [address] 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
--- OUTSIDE RECORDS SUMMARY | 2025-03-05 09:28 | XMS_ITS | Data Portability ---
Author Organization [place] [facility], Main Office Address [address] [place] [address] Assessment Encounter Date Assessment Date Assessment LastModified by Organization Details LastModified Time 02/24/2024 02/24/2024 Flu vaccines: 07/2023 COVID vaccine: 01/2021 RSV vaccine: recommended Tdap: recommended Shingles vaccines: recommended Colonoscopy: 2019, unsure of when she is supposed to followed Mammogram: 10/2023, okay for annual screening WWE: scheduled for 08/2024 Vision exam: 02/21/2024 Dental Exam: 01/2024 Continue planned follow up with opthalmologic and endocrinology mthilker Not available 02/24/2024 09:32:17 Plan of Treatment Reminders Order Date Submit Date Provider Last Modified By Organization Details Last Modified Time Details Appointments None recorded. Lab vitamin B12 + folate, serum or blood 2023 [facility], [address], [place], [address], 09:41:14 HbA1c (hemoglobin A1c), blood 2023 [facility], [address], [place], [address], 4 09:41:16 vitamin D, 25-hydroxy, total, serum 2023 [facility], [address], [place], [address], 4 09:41:15 lipid panel, serum 2023 [facility], [address], [place], [address], 4 09:41:11 CMP, serum or plasma 2023 [facility], [address], [address], [place], [address], 4 09:41:13 Referral None recorded. Procedures None recorded. Surgeries None recorded. Imaging None recorded. Medication Orders Medrol (Silvino) 4 mg tablets in a dose pack 2023 [id number], [address], [place], [id number], 15:33:13 cyanocobala min (vit B-12) 1,000 mcg tablet 2023 [facility] #[id number], [address], [place], [id number], 4 09:25:02 ergocalcife rol (vitamin D2) 1,250 mcg (50,000 unit) capsule 2023 [facility] #[id number], [address], [place], [id number], 4 09:25:04 Patient TargetsNo targets recorded. Patient Instructions Encounter Date Encounter Id Patient Instructions Last Modified By Organization Details Last Modified Time 02/11/2023 [id number] mo fu htn, weight, lipid, thyroid, elevated CRP. Not available 02/11/2023 09:46:43 08/19/2023 [id number] mo fu htn, weight, lipid, thyroid, elevated CRP. Not available 08/19/2023 08:47:47 Reason for Referral None Reported. Results Created Date Observation Date Name Description Value Unit Range Abnormal Flag Note LastModifiedBy Organization Detail LastModifiedTime 02/07/202023 LIPID PANEL , STAND ARTI cholesterol, total 232 mg/dL <200 high Not Available [facility] [address] [address] [place], [address], 02/08/2023 12:41:08 02/07/20 23 02/08/2023 LIPID PANEL , STAND ARTI HDL cholesterol 54 mg/dL > or = 50 normal Not Available [facility] [address] [address] [place], [address], 02/08/2023 12:41:08 02/07/20 23 02/08/2023 LIPID PANEL , STAND ARTI triglyceride s 156 mg/dL <150 high Not Available [facility] [address] [address] [place], [address], 02/08/2023 12:41:08 02/07/20 23 02/08/2023 LIPID PANEL , STAND ARTI LDL-choleste rol 149 mg/dL _(belkis c) high Refer ence range : <100 Phillip able range <100 mg/dL for prima ry preve ntion ; <70 mg/dL for patie nts with CHD or diabe tic patie nts with > or = 2 CHD risk facto rs. LDL-C is now calcu lated using the Rose Mary n-Hop kins calcu tomasa n, which is a valid ated novel metho d provi ding juan diego r accur acy than the Fried awilda equat ion in the estim ation of LDL-C . Rose Mary abernathy SS et al. LINDA. 2013; 310(1 9): 2061- 2068 (http ://ed ucati on.Qu Dane Seebrights. com/f aq/FA Q164) Not Available [facility] [address] [address] [place], [address], 02/08/2023 12:41:08 02/07/20 23 02/08/2023 LIPID PANEL , STAND ARTI chol/HDLC ratio 4.3 (calc ) <5.0 normal Not Available [address] [address] [place], [address], 02/08/2023 12:41:08 02/07/20 23 02/08/2023 LIPID PANEL , STAND ARTI non HDL cholesterol 178 mg/dL _(belkis c) <130 high For patie nts with diabe marla plus 1 major ASCVD risk facto r, treat ing to a non-H DL-C goal of <100 mg/dL (LDL- C of <70 mg/dL ) is consi dered a thera peuti c optio n. Not Available [address] [address] [place], [address], 02/08/2023 12:41:08 02/07/20 23 02/08/2023 BASIC METAB OLIC PANEL glucose 96 mg/dL 65-99 normal Fasti ng refer ence inter aruna Not Available [address] [place], [address], 02/08/2023 12:41:08 02/07/20 23 02/08/2023 BASIC METAB OLIC PANEL urea nitrogen (BUN) 10 mg/dL 7-25 normal Not Available [address], [address], 02/08/2023 12:41:08 02/07/20 23 02/08/2023 BASIC METAB OLIC PANEL creatinine 0.63 mg/dL 0.50-1 .05 normal Not Available [address], [address], 02/08/2023 12:41:08 02/07/20 23 02/08/2023 BASIC METAB OLIC PANEL eGFR 101 mL/mi n/1.7 3m2 > or = 60 normal The eGFR is based on the CKD-E PI 2020 ermelindaat allegra. To calcu late the new eGFR from a previ ous Creat inine or Cysta tin C resul t, go to https ://edelmira ramirez.o maylin/sherrie mello s/ kdoqi /gfr% 5Fcal culat or Not Available [address], [address], 02/08/2023 12:41:08 02/07/20 23 02/08/2023 BASIC METAB OLIC PANEL BUN/creatini ne ratio NOT APPLIC ABLE (calc ) 6-22 Not Available [address], [address], 02/08/2023 12:41:08 02/07/20 23 02/08/2023 BASIC METAB OLIC PANEL sodium 139 mmol/ L 135-14 6 normal Not Available [address], [address], 02/08/2023 12:41:08 02/07/20 23 02/08/2023 BASIC METAB OLIC PANEL potassium 4.3 mmol/ L 3.5-5. 3 normal Not Available [address], [address], 02/08/2023 12:41:08 02/07/20 23 02/08/2023 BASIC METAB OLIC PANEL chloride 102 mmol/ L 98-110 normal Not Available [address], [address], 02/08/2023 12:41:08 02/07/20 23 02/08/2023 BASIC METAB OLIC PANEL carbon dioxide 30 mmol/ L 20-32 normal Not Available [address], [address], 02/08/2023 12:41:08 02/07/20 23 02/08/2023 BASIC METAB OLIC PANEL calcium 9.5 mg/dL 8.6-10 .4 normal Not Available [address], [address], 02/08/2023 12:41:08 02/07/20 23 02/08/2023 HEPAT IC FUNCT ION PANEL protein, total 6.8 g/dL 6.1-8. 1 normal Not Available [address], [place], [address], 02/08/2023 12:41:09 02/07/20 23 02/08/2023 HEPAT IC FUNCT ION PANEL albumin 4.2 g/dL 3.6-5. 1 normal Not Available [address] [address] [place], [address], 02/08/2023 12:41:09 02/07/20 23 02/08/2023 HEPAT IC FUNCT ION PANEL globulin 2.6 g/dL_ (calc ) 1.9-3. 7 normal Not Available [address], [address], 02/08/2023 12:41:09 02/07/20 23 02/08/2023 HEPAT IC FUNCT ION PANEL albumin/glob ulin ratio 1.6 (calc ) 1.0-2. 5 normal Not Available [address], [address], 02/08/2023 12:41:09 02/07/20 23 02/08/2023 HEPAT IC FUNCT ION PANEL bilirubin, total 0.5 mg/dL 0.2-1. 2 normal Not Available [address], [address], 02/08/2023 12:41:09 02/07/20 23 02/08/2023 HEPAT IC FUNCT ION PANEL bilirubin, direct 0.1 mg/dL < or = 0.2 normal Not Available [address] [address] [place], [address], 02/08/2023 12:41:09 02/07/20 23 02/08/2023 HEPAT IC FUNCT ION PANEL bilirubin, indirect 0.4 mg/dL _(belkis c) 0.2-1. 2 normal Not Available [address], [address], 02/08/2023 12:41:09 02/07/20 23 02/08/2023 HEPAT IC FUNCT ION PANEL alkaline phosphatase 82 U/L 37-153 normal Not Available [facility] [email or web address] [address] [address] [place], [address], 02/08/2023 12:41:09 02/07/20 23 02/08/2023 HEPAT IC FUNCT ION PANEL AST 18 U/L 10-35 normal Not Available [facility] [address] [address] [place], [address], 02/08/2023 12:41:09 02/07/20 23 02/08/2023 HEPAT IC FUNCT ION PANEL ALT 17 U/L 6-29 normal Not Available [address] [address] [place], [address], 02/08/2023 12:41:09 02/07/20 23 02/08/2023 HS CRP hs CRP 6.9 mg/L high Refer ence Range Optim al <1.0 Michell STRONG et al. Endoc r Pract .2017 ;23(S uppl 2):1- 87. For ages >17 Years : hs-CR P mg/L Risk Accor ding to AHA/C DC Guide lines <1.0 Lower relat varghese cardi ovasc ular risk. 1.0-3 .0 [place] ge relat varghese cardi ovasc ular risk. 3.1-1 0.0 Highe r relat varghese cardi ovasc ular risk. Consi yulissa retes ting in 1 to 2 weeks to exclu de a benig n trans ient eleva tion in the basel ine CRP value secon dilia to infec tion or infla mmati on. >10.0 Persi stent eleva tion, upon retes ting, may be assoc iated with infec tion and infla mmati on. Not Available [facility] [employer] [address] [address] [place], [address], 02/08/2023 12:41:10 02/07/20 23 02/08/2023 HEMOG LOBIN A1C hemoglobin A1C 5.7 %_of_ total _HGB <5.7 high For someo ne witho ut known diabe marla, a hemog lobin A1c value betwe en 5.7% and 6.4% is consi stent with predi abete s and shoul d be confi rmed with a follo w-up test. For someo ne with known diabe marla, a value <7% indic ates that their diabe marla is well contr olled . A1c targe ts shoul d be indiv idual ized based on durat ion of diabe marla, age, comor bid condi tions , and other consi derat ions. This assay resul t is consi stent with an incre ased risk of diabe marla. Curre ntly, no conse nsus exist s regar ding use of hemog lobin A1c for diagn osis of diabe marla for child abby. Not Available [employer] [address] [address] [place], [address], 02/08/2023 12:41:10 02/26/20 24 02/27/2024 LIPID PANEL , STAND ARTI cholesterol, total 131 mg/dL <200 normal Not Available [employer] [address] [place], [address], 02/27/2024 09:41:11 02/26/20 24 02/27/2024 LIPID PANEL , STAND ARTI HDL cholesterol 51 mg/dL > or = 50 normal Not Available [employer] [address] [place], [address], 02/27/2024 09:41:11 02/26/20 24 02/27/2024 LIPID PANEL , STAND ARTI triglyceride s 122 mg/dL <150 normal Not Available [employer] [address] [place], [address], 02/27/2024 09:41:11 02/26/20 24 02/27/2024 LIPID PANEL , STAND ARTI LDL-choleste rol 60 mg/dL _(belkis c) normal Refer ence range : <100 Phillip able range <100 mg/dL for prima ry preve ntion ; <70 mg/dL for patie nts with CHD or diabe tic patie nts with > or = 2 CHD risk facto rs. LDL-C is now calcu lated using the Rose Mary n-Hop kins calcu tomasa n, which is a valid ated novel metho d maryami elli juan diego r accur acy than the Fried awilda equat ion in the estim ation of LDL-C . Rose Mary abernathy SS et al. LINDA. 2013; 310(1 9): 2061- 2068 (http ://ed ucati on.Qu estRailComm. com/f aq/FA Q164) Not Available [facility] [address] [address] [place], [address], 02/27/2024 09:41:11 02/26/20 24 02/27/2024 LIPID PANEL , STAND ARTI chol/HDLC ratio 2.6 (calc ) <5.0 normal Not Available [facility] [address] [address] [place], [address], 02/27/2024 09:41:11 02/26/20 24 02/27/2024 LIPID PANEL , STAND ARTI non HDL cholesterol 80 mg/dL _(belkis c) <130 normal For patie nts with diabe marla plus 1 major ASCVD risk facto r, treat ing to a non-H DL-C goal of <100 mg/dL (LDL- C of <70 mg/dL ) is consi dered a thera peuti c optio n. Not Available [employer] [facility] [address] [place], [address], 02/27/2024 09:41:11 02/26/20 24 02/27/2024 COMPR EHENS VARGHESE METAB OLIC PANEL glucose 113 mg/dL 65-99 high Fasti ng refer ence inter aruna For someo ne witho ut known diabe marla, a gluco se value betwe en 100 and 125 mg/dL is consi stent with predi abete s and shoul d be confi rmed with a follo w-up test. Not Available [address], [address], 02/27/2024 09:41:13 02/26/20 24 02/27/2024 COMPR EHENS VARGHESE METAB OLIC PANEL urea nitrogen (BUN) 11 mg/dL 7-25 normal Not Available [address], [address], 02/27/2024 09:41:13 02/26/20 24 02/27/2024 COMPR EHENS VARGHESE METAB OLIC PANEL creatinine 0.61 mg/dL 0.50-1 .05 normal Not Available [address], [address], 02/27/2024 09:41:13 02/26/20 24 02/27/2024 COMPR EHENS VARGHESE METAB OLIC PANEL eGFR 102 mL/mi n/1.7 3m2 > or = 60 normal Not Available [address], [address], 02/27/2024 09:41:13 02/26/20 24 02/27/2024 COMPR EHENS VARGHESE METAB OLIC PANEL BUN/creatini ne ratio SEE NOTE: (calc ) 6-22 Not Repor rogerio: BUN and Creat inine are withi n refer ence range . Not Available [address], [address], 02/27/2024 09:41:13 02/26/20 24 02/27/2024 COMPR EHENS VARGHESE METAB OLIC PANEL sodium 142 mmol/ L 135-14 6 normal Not Available [address], [address], 02/27/2024 09:41:13 02/26/20 24 02/27/2024 COMPR EHENS VARGHESE METAB OLIC PANEL potassium 4.7 mmol/ L 3.5-5. 3 normal Not Available [address], [address], 02/27/2024 09:41:13 02/26/20 24 02/27/2024 COMPR EHENS VARGHESE METAB OLIC PANEL chloride 107 mmol/ L 98-110 normal Not Available [address], [address], 02/27/2024 09:41:13 02/26/20 24 02/27/2024 COMPR EHENS VARGHESE METAB OLIC PANEL carbon dioxide 30 mmol/ L 20-32 normal Not Available [address], [address], 02/27/2024 09:41:13 02/26/20 24 02/27/2024 COMPR EHENS VARGHESE METAB OLIC PANEL calcium 9.3 mg/dL 8.6-10 .4 normal Not Available [address], [address], 02/27/2024 09:41:13 02/26/20 24 02/27/2024 COMPR EHENS VARGHESE METAB OLIC PANEL protein, total 6.7 g/dL 6.1-8. 1 normal Not Available [address], [address], 02/27/2024 09:41:13 02/26/20 24 02/27/2024 COMPR EHENS VARGHESE METAB OLIC PANEL albumin 4.2 g/dL 3.6-5. 1 normal Not Available [address], [address], 02/27/2024 09:41:13 02/26/20 24 02/27/2024 COMPR EHENS VARGHESE METAB OLIC PANEL globulin 2.5 g/dL_ (calc ) 1.9-3. 7 normal Not Available [address], [address], 02/27/2024 09:41:13 02/26/20 24 02/27/2024 COMPR EHENS VARGHESE METAB OLIC PANEL albumin/glob ulin ratio 1.7 (calc ) 1.0-2. 5 normal Not Available [address], [address], 02/27/2024 09:41:13 02/26/20 24 02/27/2024 COMPR EHENS VARGHESE METAB OLIC PANEL bilirubin, total 0.5 mg/dL 0.2-1. 2 normal Not Available [address], [address], 02/27/2024 09:41:13 02/26/20 24 02/27/2024 COMPR EHENS VARGHESE METAB OLIC PANEL alkaline phosphatase 77 U/L 37-153 normal Not Available [address], [address], 02/27/2024 09:41:13 02/26/20 24 02/27/2024 COMPR EHENS VARGHESE METAB OLIC PANEL AST 18 U/L 10-35 normal Not Available [address], [address], 02/27/2024 09:41:13 02/26/20 24 02/27/2024 COMPR EHENS VARGHESE METAB OLIC PANEL ALT 19 U/L 6-29 normal Not Available [address], [address], 02/27/2024 09:41:13 02/26/20 24 02/27/2024 VITAM IN B12/F OLATE , SERUM PANEL vitamin B12 523 pg/mL 200-11 00 normal Not Available [address], [address], 02/27/2024 09:41:14 02/26/20 24 02/27/2024 VITAM IN B12/F OLATE , SERUM PANEL folate, serum 9.0 NG/mL normal Refer ence Range Low: <3.4 Borde rline : 3.4-5 .4 Batool l: >5.4 Not Available [facility] [address] [place], [address], 02/27/2024 09:41:14 02/26/20 24 02/27/2024 VITAM IN D,25- OH,TO LASHONDA,I A vitamin D,25-oh,tota l,ia 77 NG/mL 30-100 normal Vitam in D Statu s 25-OH Vitam in D: Defic iency : <20 ng/mL Insuf ficie ncy: 20 - 29 ng/mL Optim al: > or = 30 ng/mL For 25-OH Vitam in D testi ng on patie nts on D2-ruvalcaba pplem entat ion and patie nts for whom quant itati on of D2 and D3 fract ions is requi red, the [facility] e[facility](TM ) 25-OH VIT D, (D2,D 3), LC/MS /MS is recom jodi d: order code 25113 (dannie ents >2yrs ). See Note 1 Note 1 For addit ional infor lilian mejia e refer to http: //bessie Law stDia gnost ics.c om/fa q/FAQ 199 (This link is being provi ded for infor zita craig/ dennis madden purpo ses only. ) Not Available [employer] [facility] [address] [place], [address], 02/27/2024 09:41:15 02/26/20 24 02/27/2024 HEMOG LOBIN A1C hemoglobin A1C 5.9 %_of_ total _HGB <5.7 high For someo ne witho ut known diabe marla, a hemog lobin A1c value betwe en 5.7% and 6.4% is consi stent with predi abete s and shoul d be confi rmed with a follo w-up test. For someo ne with known diabe marla, a value <7% indic ates that their diabe marla is well contr olled . A1c targe ts shoul d be indiv idual ized based on durat ion of diabe marla, age, comor bid condi tions , and other consi derat ions. This assay resul t is consi stent with an incre ased risk of diabe marla. Curre ntly, no conse nsus exist s regar ding use of hemog lobin A1c for diagn osis of diabe marla for child abby. This test was perfo rmed on the [facility] thao c503 platf orm. Effec tive , a rosmery benson in test platf orms from the [facility] t Archi tect to the [facility]hir thao c503 may have shift ed HbA1c resul ts laina red to histo rical resul ts. Based on labor atory valid ation testi ng condu cted at [facility] , the [facility] platf orm relat varghese to the [facility] [employer] platf orm had an avera ge incre ase in HbA1c value of < or = 0.3%. This diffe rence is withi n accep rogerio varia bilit y estab lishe d by the Natio [facility] [employer] hemog lobin Stand ardiz ation Progr am. Note that not all indiv idual s will have had a shift in their resul ts and direc t laina rison s betwe en histo rical and curre nt resul ts for testi ng condu cted on diffe rent platf orms is not recom jodi d. Not Available [facility] [address] [place], [address], 02/27/2024 09:41:16 07/21/20 23 07/21/2023 CT, abdom en + pelvi s, w/o contr ast No observ ation record ed. [email or web address] [facility] [address], [place], [address], 07/21/2023 14:10:28 11/18/20 23 MAMMO , scree robert, digit al, bilat eral [facility] [address] [facility], [place] [address] Patien t Name: SYLWIA HIRSCH Access ion #: [id number] Sex: F : 1959 4 Dictat ed By: Suze Cuadra Attend ing Physic ngozi: OLI LAURENT Physic ngozi: ALEJANDRA DURAN Exam Date: 2022 10:02 AM Exam Name: MG JOSE ELIAS Madden YESSICA BILAT SCREEN Admitt ing Diagno sis(es ): CLINIC AL HISTOR Y: Screen ing COMPAR JOANNE STUDY: 2021 TECHNI QUE: Using a full field digita l 2D mammog rosas unit CC and MLO views of both breast s are perfor med. FINDIN GS: BREAST COMPOS ITION: There are scatte red areas of fibrog landul ar densit y in the bilate ral breast s. No suspic ious masses , sabrina ectura l distor tion, asymme tries or suspic ious calcif icatio ns in both breast s. IMPRES ANTHONY: No eviden ce of malign joann. Recomm end annual mammog jett. BIRADS : 2 - Benign Electr onical ly Signed by: Suze Cuadra at 2022 13:19: 28 PM Page 1 [email or web address] [facility] ([facility]) [address] [place], [address], 11/18/2023 15:39:03 11/18/20 23 11/18/2023 MAMMO , scree robert, bilat eral No observ ation record ed. [address], [place], [address], 11/30/2023 11:41:39 Result Notes None recorded. Problems Name Problem SNOMED Code Status Onset Date Resolution Date Notes Provider Name and Address Organization Details Recorded Time Celluliti s 140819086 Completed Not Available [facility] 3 06:02:43 Abscess 077603527 Completed Not Available [facility] 3 06:02:43 Pain in throat 319392502 Completed Not Available [facility] 3 06:02:43 Menopausa l flushing 969418692 Active Not Available [facility] 3 06:02:43 Contact dermatiti s caused by urushiol from [place] 454080357 Completed Not Available [facility] 3 06:02:43 Glaucoma 37665475 Active 2020 Not Available [facility] 3 06:02:43 Eruption 485206456 Completed Not Available [facility] 3 06:02:43 Vitamin D deficienc y 02424347 Active Not Available [facility] 3 06:02:43 Sinusitis 54789942 Completed Not Available [facility] 3 06:02:43 Disorder of vitamin B12 836581240 Active 2020 Not Available [facility]ending [facility] 3 06:02:43 Vertigo 658901228 Completed Not Available [facility] 3 06:02:43 Pharyngit is 150412874 Completed Not Available [facility] 3 06:02:43 Hypothyro idism 59423998 Active Not Available [facility] 3 06:02:44 Obesity 269294829 Active Not Available [facility] 3 06:02:44 Candidias is of skin 72799237 Completed Not Available [facility] 3 06:02:44 Hyperlipi demia 83006975 Active Not Available [facility] 3 06:02:44 Essential hypertens ion 12915459 Active Not Available [facility] 3 06:02:44 Polyp of colon 79441668 Active Not Available [facility] 3 06:02:44 Hemorrhoi ds 90900844 Active Not Available [facility] 3 06:02:44 Fatigue 24705834 Completed Not Available [facility] 3 06:02:44 Streptoco ccal infectiou s disease 24079516 Completed Not Available [facility] 3 06:02:44 Vitamin B12 deficienc y (non anemic) 40095021 Active 2023 YRN Boland [address] [facility], [facility] [address], [place], [address] , [facility] 4 09:23:28 Prediabet es 270462570 Active 2023 YRN Boland [address], [address], [place], [address] , [facility] [employer] [facility] [employer] [facility] 4 08:29:22 Morbid obesity 529369549 Active 2023 YRN Boland [address], [address], [place], [address] , [facility] [employer] [facility] 4 12:04:18 Rib pain 344253614 Active 2023 YRN Boland [address], [address], [place], [address] , [facility] [employer] [facility] [employer] [facility] 4 09:18:40 Mass of right breast [id number] 686273 Active 2023 YRN Boland [address], [address], [place], [address] , [facility] [employer] [facility] [employer] [facility] 4 11:27:30 Benign paroxysma l positiona l vertigo 898075940 Active 2023 YRN Boland [address], [address], [place], [address] , [facility] [employer] [facility] [employer] [facility] 15:31:14 Problem Notes None recorded. Procedures Surgical History Date Name Laterality Status Provider Name and Address Organization Details Recorded Time 11/18/20 23 Most Recent Mammogram completed Jeri Laurent NP [address], [address], [place], [address], [facility] [employer] [facility] 11/24/2023 19:27:17 06/22/20 23 cholecystectomy completed Jeri Baker RN [facility] 08/19/2023 08:42:29 08/12/20 21 Date of Last Pap Smear completed Jeri Baker RN [facility] [employer] [facility] 02/11/2023 09:12:59 06/09/20 21 Most Recent Bone Density completed Jeri Baker RN [facility] [employer] [facility] 02/11/2023 09:13:54 08/04/20 19 Date of Last Colonoscopy completed Jeri Laurent NP [address] [facility], [place], [address], [facility] 02/11/2023 09:17:37 Thyroid Surgery completed Not Available [facility] 01/20/2023 05:56:31 colonoscopy completed Not Available [facility] 01/20/2023 05:56:31 Hysterectomy, Partial completed Not Available [facility] 01/20/2023 05:56:31 Imaging Results Imaging Date Name Status LastModified by Organiz ation Details LastModified Time 07/21/2023 CT, abdomen + pelvis, w/o contrast completed [email or web address] [place] [address] [id number] [facility] [address], [place], [address], 07/21/2023 14:10:28 11/18/2023 MAMMO, screening, digital, bilateral completed [email or web address] [facility] (Imaging) [address], [place], [address], 11/18/2023 15:39:03 11/18/2023 MAMMO, screening, bilateral completed [email or web address] [address], [place], [address], 11/30/2023 11:41:39 Procedure Notes None recorded. Medical Equipment None Reported. Allergies No known drug allergies Medications Name Sig Start Date Stop Date Status Note LastModified by Organization Details LastModified Time losartan 50 mg tablet TAKE 1 TABLET BY MOUTH EVERY DAY 02/09 completed Not Available Not Available Not Available cyclobenza sil 10 mg tablet TK 1 T PO TID PRN 05/22 completed Not Available Not Available Not Available amoxicilli n 500 mg capsule TAKE 1 CAPSULE BY MOUTH FOUR TIMES DAILY X 7 DAYS 02/23 completed Not Available Not Available Not Available latanopros t 0.005 % eye drops INSTILL 1 DROP INTO BOTH EYES EVERY DAY IN THE EVENING active Not Available Not Available No t Available Levoxyl 150 mcg tablet TAKE 1 TABLET BY MOUTH EVERY DAY active Not Available Not Available No t Available Anusol-HC 2.5 % rectal cream with applicator Insert 1 applicat ion twice a day by rectal route for 30 days. active Not Available Not Available No t Available azithromyc in 250 mg tablet TAKE 2 TABLETS (500 MG) BY ORAL ROUTE ONCE DAILY FOR 1 DAY THEN 1 TABLET (250 MG) BY ORAL ROUTE ONCE DAILY FOR 4 DAYS 11/12 completed Not Available Not Available Not Available hydrocodon e 5 mg-acetami nophen 325 mg tablet 08/19 completed Not Available Not Available Not Available Nystop 100,000 unit/gram topical powder APPLY TOPICALL Y AA BID 05/18 completed Not Available Not Available Not Available famotidine 40 mg tablet TK 1 T PO QD FOR 10 DAYS 11/03 completed Not Available Not Available Not Available Rocephin 1 gram solution for injection 11/30 completed Not Available Not Available Not Available Anucort-HC 25 mg suppositor y UNW AND I 1 SUP REC QHS FOR 7 DAYS active Not Available Not Available No t Available cyanocobal yeager (vit B-12) 1,000 mcg tablet TAKE 1 TABLET BY MOUTH EVERY DAY FOR 30 DAYS. 2024 active Not Available Not Available Not Avai lable penicillin V potassium 500 mg tablet Take 1 tablet every 8 hours by oral route as directed for 10 days. active Not Available Not Available No t Available phentermin e 37.5 mg tablet TK 1 T PO QD 05/29 completed Not Available Not Available Not Available sulfametho xazole 800 mg-trimeth oprim 160 mg tablet TK 1 T PO Q 12 H 11/30 completed Not Available Not Available Not Available triamcinol one acetonide 0.1 % topical cream APPLY A THIN LAYER TO THE AFFECTED AREA(S) BY TOPICAL ROUTE 2 TIMES PER DAY active Not Available Not Available No t Available amoxicilli n 500 mg tablet TK 1 T PO QID 10/11 completed Not Available Not Available Not Available Synthroid 175 mcg tablet 12/12 completed Not Available Not Available Not Available Kenalog 40 mg/mL suspension for injection Take 1 mL every day by injectio n route for 1 day. 11/03 completed Not Available Not Available Not Available amoxicilli n 875 mg tablet Take 1 tablet twice a day by oral route. active Not Available Not Available No t Available Synthroid 25 mcg tablet 03/31 completed Not Available Not Available Not Available Proctozone -HC 2.5 % topical cream perineal applicator APPLY A THIN LAYER TO THE AFFECTED AREA(S) BY TOPICAL ROUTE 2-4 TIMESDAI LY 03/31 completed prn Not Available Not Available Not Available cephalexin 500 mg capsule active Not Available Not Available Not Available cyanocobal yeager (vit B-12) 1,000 mcg/mL injection solution Inject 1 mL every month by subcutan eous route for 1 day. 07/06 completed Not Available Not Available Not Available losartan 25 mg tablet active Not Available Not Available Not Available timolol 0.25 % eye drops INSTILL 1 DROP INTO AFFECTED EYE(S) BY OPHTHALM IC ROUTE 2 TIMES PER DAY 02/11 completed Not Available Not Available Not Available dorzolamid e 22.3 mg-timolol 6.8 mg/mL eye drops INSTILL 1 DROP IN AFFECTED EYE(S) TWICE DAILY active Not Available Not Available No t Available mupirocin 2 % topical ointment APPLY A SMALL AMOUNT AA TID 11/30 completed Not Available Not Available Not Available furosemide 20 mg tablet TK 1 T PO QD 10/11 completed PRN Not Available Not Available Not Available ergocalcif pop (vitamin D2) 1,250 mcg (50,000 unit) capsule TAKE 1 CAPSULE BY MOUTH EVERY WEEK 2024 active Not Available Not Available Not Avai lable ibuprofen 600 mg tablet TAKE 1 TABLET BY MOUTH EVERY 6 HOURS NEEDED FOR PAIN RATED 4 TO 6 active Not Available Not Available No t Available methylpred nisolone 4 mg tablets in a dose pack FOLLOW PACKAGE DIRECTIO NS active Not Available Not Available No t Available timolol maleate 0.5 % eye drops INSTILL 1 DROP IN BOTH EYES IN THE MORNING 07/06 completed Not Available Not Available Not Available losartan 100 mg tablet TAKE 1 TABLET BY MOUTH EVERY DAY 2023 active Not Available Not Available Not Avai lable brimonidin e 0.15 % eye drops 02/11 completed Not Available Not Available Not Available rosuvastat in 10 mg tablet TAKE 1 TABLET BY MOUTH EVERY DAY active Not Available Not Available No t Available latanopros t 02/23 completed Not Available Not Available Not Available Analpram E 2.5 %-1 % (4 gram)-1 % kit,cream and towelette Insert 1 kit every day by rectal route. 09/10 completed Not Available Not Available Not Available Suprep Bowel Prep Kit 17.5 gram-3.13 gram-1.6 gram oral solution 05/22 completed Not Available Not Available Not Available Qsymia 3.75 mg-23 mg capsule, extended release Take 1 capsule every day by oral route for 14 days. 08/24 completed Not Available Not Available Not Available Qsymia 7.5 mg-46 mg capsule, extended release Take 1 capsule every day by oral route for 30 days. 11/30 completed this needs a Prior Auth at [phone] ext [phone]..o nce the PA is done please refill this... Thank you Not Available Not Available Not Available Belviq 10 mg tablet TK 1 T PO BID UTD active Not Available Not Available No t Available Soolantra 1 % topical cream 10/11 completed Not Available Not Available Not Available Afluria Quad (PF) 60 mcg (15 mcg x 4)/0.5 mL IM syringe active Not Available Not Available N ot Available Rocklatan 0.02 %-0.005 % eye drops INSTILL 1 DROP IN BOTH EYES EVERY DAY IN THE EVENING 02/11 completed Not Available Not Available Not Available Wegovy 0.25 mg/0.5 mL subcutaneo us pen injector Inject by subcutan eous route for 28 days. 07/06 completed Not Available Not Available Not Available Mounjaro 2.5 mg/0.5 mL subcutaneo us pen injector Inject by subcutan eous route for 28 days. 04/06 completed Not Available Not Available Not Available Zepbound 2.5 mg/0.5 mL subcutaneo us pen injector Inject by subcutan eous route for 28 days. 07/06 completed Not Available Not Available Not Available Vitals Date Recorded Body mass index (BMI) Body height Oxygen saturation Oxygen saturation in Arterial blood by Pulse oximetry Heart rate Respiratory rate Body temperature Body weight Systolic blood pressure Diastolic blood pressure Provider Name and Address Organization Details Last Updated DateTime 2 47.6 kg/m2 170.18 cm 97 % 97 % 92 /min 16 /min 96.9 [degF] 866369. 08 g 142 mm[Hg] 82 mm[Hg] Not Available [employer] 3 05:57:18 Date Recorded Body height Body mass index (BMI) Body weight Body temperature Respiratory rate Heart rate Oxygen saturation Oxygen saturation in Arterial blood by Pulse oximetry Systolic blood pressure Diastolic blood pressure Provider Name and Address Organization Details Last Updated DateTime 3 170.18 cm 47.8 kg/m2 260164. 72 g 96.4 [degF] 20 /min 88 /min 95 % 95 % 144 mm[Hg] 78 mm[Hg] Jeri Baker RN [facility] [employer] [facility] 3 09:08:16 Date Recorded Body height Body mass index (BMI) Body weight Body temperature Heart rate Oxygen saturation Oxygen saturation in Arterial blood by Pulse oximetry Pain severity - 0-10 verbal numeric rating [Score] - Reported Respiratory rate Systolic blood pressure Diastolic blood pressure Provider Name and Address Organization Details Last Updated DateTime 3 170.18 cm 45.9 kg/m2 161018. 56 g 96.4 [degF] 86 /min 95 % 95 % 0 20 /min 156 mm[Hg] 88 mm[Hg] Jeri Baker RN [facility] [employer] [facility] 3 08:41:55 Date Recorded Body height Body mass index (BMI) Body weight Body temperature Heart rate Respiratory rate Oxygen saturation Oxygen saturation in Arterial blood by Pulse oximetry Pain severity - 0-10 verbal numeric rating [Score] - Reported Provider Name and Address Organization Details Last Updated DateTime 4 170.18 cm 45.2 kg/m2 275052. 05 g 96.5 [degF] 85 /min 20 /min 97 % 97 % 3 Jeri Baker RN [facility] [employer] [facility] 4 08:41:24 Date Recorded Systolic blood pressure Diastolic blood pressure Provider Name and Address Organization Details Last Updated DateTime 02/24/2024 148 mm[Hg] 82 mm[Hg] YRN Boland [address], [address], [facility] [employer] [facility] 02/24/2024 09:30:38 Date Recorded Body height Body mass index (BMI) Body weight Body temperature Heart rate Respiratory rate Oxygen saturation Oxygen saturation in Arterial blood by Pulse oximetry Pain severity - 0-10 verbal numeric rating [Score] - Reported Systolic blood pressure Diastolic blood pressure Provider Name and Address Organization Details Last Updated DateTime 4 170.18 cm 45.5 kg/m2 533506. 19 g 97.7 [degF] 78 /min 20 /min 97 % 97 % 0 180 mm[Hg] 112 mm[Hg] Jeri Baker RN [place] [facility] [place] [email or web address] 4 15:13:58 Social History Question Answer Notes LastModified by Organization Details LastModified Time Tobacco Smoking Status Never Smoker Not Available [employer] 01/20/2023 05:53:53 What Is Your Level Of Alcohol Consumption? Occasional [id number] Information not available 01/20/2023 Is Blood Transfusion Acceptable In An Emergency? Yes Information not available 02/11/2023 What Is Your Level Of Caffeine Consumption? Moderate [id number] Information not available 01/20/2023 What Is Your Code Status? Full Code [id number] Information not available 01/20/2023 In The 14 Days Before Symptom Onset, Have You Had Close Contact With A Laboratory-confi rmed COVID-19 While That Case Was Ill? No MIGRATION.030 [id number] Information not available 01/20/2023 In The 14 Days Before Symptom Onset, Have You Had Close Contact With A Person Who Is Under Investigation For COVID-19 While That Person Was Ill? No [id number] Information not available 01/20/2023 What Type Of Diet Are You Following? REGULAR [id number].030 [id number] Information not available 01/20/2023 Which Illicit Or Recreational Drugs Have You Used? None [id number].030 [id number] Information not available 01/20/2023 What Is The Highest Grade Or Level Of School You Have Completed Or The Highest Degree You Have Received? 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 Yes Mother In June Information not available 08/19/2023 Do You Use Insect Repellent Routinely? Yes Information not available 02/11/2023 Where Do You Live? SingleLevelHouse [id number] Information not available 01/20/2023 Do You Have A Medical Power Of Seals Engraver? Yes Musa Johnson [id number] Information not available 01/20/2023 How Many Children Do You Have? 2 Information not available 02/11/2023 Do You Have Any Pets? No Information not available 02/11/2023 Do You Use Protection During Sex? No Information not available 02/11/2023 What Is Your Relationship Status? Single Lives With SO Information not available 02/11/2023 Do You Use Your Seat Belt Or Car Seat Routinely? Yes Information not available 02/11/2023 Are You Sexually Active? Yes Information not available 02/11/2023 Do You Have Smoke And Carbon Monoxide Detectors In Your Home? Yes Information not available 02/11/2023 Are You Passively Exposed To Smoke? No [id number] Information not available 01/20/2023 Are There Any Smokers In Your House? No [id number] Information not available 01/20/2023 Do You Participate In Social Media? No Information not available 02/11/2023 Do You Feel Stressed (tense, Restless, Nervous, Or Anxious, Or Unable To Sleep At Night)? [id number] Information not available 08/19/2023 Do You Use Any Illicit Or Recreational Drugs? No Information not available 02/11/2023 Do You Use Sunscreen Routinely? Yes Information not available 02/11/2023 Have You Recently Traveled Abroad? No [id number] Information not available 01/20/2023 Sex: Unknown Functional Status Question Answer Note LastModified by Organizat ion Details LastModified Time What is your exercise level? Occasional [id number] Information not available 01/20/2023 Mental Status None recorded. Family History Relationship Description Onset Age of this Age Resolved Age Notes LastModified by Organization Details LastModified Time Mother Hypertensive disorder [id number] Not available 01/20/2023 05:56:33 Mother Hyperlipidem ia MIGRATION.017 [id number] Not available 01/20/2023 05:56:33 Mother Intracranial tumor MIGRATION.217 [id number] Not available 01/20/2023 05:56:33 Mother Stented artery kidney MIGRATION.814 [id number] Not available 01/20/2023 05:56:33 Father Carcinoma in situ of colon MIGRATION.013 [id number] Not available 01/20/2023 05:56:33 Mother Benign neoplasm of brain Not available 2023 15:15:13 Sister Benign neoplasm of brain Not available 2023 15:15:13 Medical History Condition Response THYROID DISEASE Y BACK / NECK PROBLEMS Y HEARTBURN / REFLUX Y HYPERTENSION Y HIGH CHOLESTEROL / HYPERLIPIDEMIA Y Gynecological History Statement/Question Response How many live births 2 If Post Menopausal, Age at Menopause Date of Last Colonoscopy 08/04/2019 Most Recent Bone Density 06/09/2021 Sexually Active? Y STIs/STDs N Date of Last Pap Smear 08/12/2021 Most Recent Mammogram 11/18/2023 Discharge none Breast Problems none Obstetrics History GPAL:G 2 P 2 0 0 1 Type Value Full Term 2 Living 1 Total 2 Immunizations Vaccine Type Date Status Note Provider Nam e and Address Organization Details Recorded Time Influenza, split virus, quadrivalent, PF 3 completed Jeri Baker RN null, [place] - [facility] [employer] [facility] 08/19/2023 09:21:10 Influenza, split virus, quadrivalent, preservative 1 completed Not Available Pending sale to [facility] 01/20/2023 06:08:33 COVID-19, mRNA, LNP-S, PF, 100 mcg/0.5mL dose or 50 mcg/0.25mL dose 1 completed Not Available [facility] 01/20/2023 06:08:33 Influenza, split virus, quadrivalent, preservative 8 completed Not Available [facility] 01/20/2023 06:08:33 Influenza, split virus, quadrivalent, PF 2 completed Not Available [facility] 01/20/2023 06:08:33 Past Encounters Encounter ID Performer Location Encounter Start Date Encounter Closed Date Diagnosis/Indication Diagnosis SNOMED-CT Code Diagnosis ICD10 Code Diagnosis Note [id number] [facility] Vasquez [address] , [place] [address] 05/29/2021 00:00:00 05/29/2021 09:20:48 [id number] [facility] [place] [address] , [place] [address] 06/04/2021 00:00:00 06/04/2021 09:15:53 [id number] [facility] [place] [address] , [place] [address] 06/10/2021 00:00:00 06/10/2021 12:07:01 [id number] [facility] [place] [address] [place] [address] 06/17/2021 00:00:00 06/17/2021 12:56:51 [id number] [facility] [place] [address] [place] [address] 06/24/2021 00:00:00 06/24/2021 14:16:07 [id number] [facility] [place] [address] [place] [address] 07/22/2021 00:00:00 07/22/2021 17:22:45 [id number] [facility] [place] [address] [place] [address] 08/12/2021 00:00:00 08/12/2021 14:56:11 [id number] [facility] [place] [address] [place] [address] 10/02/2021 00:00:00 10/02/2021 11:30:17 [id number] [facility] [place] [address] [place] [address] 11/03/2021 00:00:00 11/03/2021 09:39:59 [id number] [facility] [place] [address] [facility] [address] , [place] [address] 12/04/2021 00:00:00 12/04/2021 10:13:07 [id number] [facility] [place] [address] , [place] [address] 01/05/2022 00:00:00 01/05/2022 09:02:36 [id number] [facility] Family [facility] [place] [address] , [place] [address] 02/09/2022 00:00:00 02/09/2022 08:54:27 [id number] [facility] Family [facility] [place] [address] , [place] [address] 05/28/2022 00:00:00 05/28/2022 08:51:09 [id number] [facility] [place] [address] , [place] [address] 06/25/2022 00:00:00 06/25/2022 14:17:02 [id number] [facility] Practice [place] [address] [place] [address] 07/30/2022 00:00:00 08/17/2022 09:23:29 [id number] [facility] Family [facility] [place] [address] , [place] [address] 08/27/2022 00:00:00 09/02/2022 10:28:11 [id number] [facility] [place] [address] [place] [address] 09/24/2022 00:00:00 09/24/2022 09:25:42 [id number] [facility] [place] [address] [place] [address] 10/22/2022 00:00:00 10/22/2022 08:53:[id number] [address] 11/12/2022 00:00:00 11/12/2022 10:50:14 [id number] Jeri Laurent NP [address] [address] 02/11/2023 08:46:07 02/11/2023 09:49:55 Essential hypertension 25833918 I10 Losartan 100 mg po daily. Disorder o f vitamin B12 999718717 E53.8 b12 injection Hyperlipidemia 87569250 E78.5 Rosuvastat in 10 mg po nightly. Low fat diet. CRP raised. Vitamin D deficiency 347 77282 E55.9 Vit d supplement . 50,000 IU weekly. Hypothyroidism 08070998 E03.9 Hx thyroid cancer.See ing ENDO.Levox yl 150 mg po daily. Obesity 954330005 E66.9 Discussed option with diet and lifestyle. Pt to check insurance for mounjaro vs wegovy. Pt to let us know. [id number] Jeri Laurent NP [address] [address] 08/19/2023 08:31:23 08/19/2023 09:14:28 Administration of influenza vaccine 91605018 Z23 Essential hypertension 53625535 I10 Losartan 100 mg po daily. Disorder o f vitamin B12 169778768 E53.8 b12 injection Hyperlipidemia 26323123 E78.5 Rosuvastat in 10 mg po nightly. Low fat diet. CRP raised.Had health care screening. Vitamin D deficiency 347 97621 E55.9 Vit d supplement . 50,000 IU weekly. Hypothyroidism 17962327 E03.9 Hx thyroid cancer.See ing ENDO. Had thyroid removed.Le voxyl 150 mg po daily.TSh was low jul 2023. Obesity 933072780 E66.9 Discussed option with diet and lifestyle. Pt to check insurance for mounjaro vs wegovy. Pt to let us know. [id number] YRN Boland [address] [address] 02/24/2024 08:30:47 02/24/2024 09:48:21 Hyperlipidemia 62003271 E78.5 Obesity 282441326 E66.9 We will attempt for Mounjaro Coverage after A1C resultsCon tinue healthy dietIncrea se cardiovasc ular exericse to 150 minutes per week Vitamin D deficiency 347 05777 E55.9 Vitamin B1 2 deficiency (non anemic) 18561276 E53.8 [id number] YRN Boland [facility] [address] [address] 07/06/2024 15:02:12 07/06/2024 15:43:08 Benign paroxysmal positional vertigo 135777255 H81.13 Essential hypertension 55834198 I10 Advised to start second BP medication , pt declines. She states she will monitor BP at home and watch salt intake.Adv ised if thundercla p headache, chest pain/heavi ness, SOB, or worsening dizziness to go to the ER Health Concerns Section Related Observation LastModified by Organization Detai ls LastModified Time None Recorded Concern Status LastModified by Organization Details LastModified Time None Recorded Advance Directives Directive N: has a trust Payers Encounter Date Sequence Insurance Name Policy Number Policy Mares Covered Member ID Mares Member ID Guarantor Name 02/11/2023 1 [facility] Sylwia Haile Boss [id number] Sylwia Hirsch 08/19/2023 1 [facility] Sylwia Haile Boss [id number] Sylwia Hirsch 02/24/2024 1 [facility] Sylwia Haile Boss [id number] Sylwia Hirsch 07/06/2024 1 [facility] Sylwia A Boss [id number] Sylwia Hirsch Notes Date Note Type Note Provider Name and Address Organization Details Recorded Time 3 text/html Here for 3 mo fu from october. HTN- 140s/90Lipid- Still high in January 2023.b12 low- Getting injections.vit d def- Has been on supplement.hypothyroidism- ENDO treating.Colonoscopy 2019. Father passed from cancerMammogram- 09/14/22 okDEXA- 06/12/19, normal bone mineral density. Had partial hysterectomy.Obese- sits all day for work. Endo wants her onGlucoma- Dr. Rivera. Jeri Laurent NP [address] [facility], [facility] [address], [place], [address], [facility] [employer] [facility] 02/11/2023 09:47:23 3 text/html Here for 6 mo fuDid have gallbladder removed 07/21/23. Gallstone. Had surgery fu on 08/12/23. All good. Sleeping on her side can feel 'scar tissue' right side. 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 Pain when getting up and moving after starting. HTN- 140s/90Lipid- Has improved from January 2023.b12 low- Getting injections.vit d def- Has been on supplement.hypothyroidism- ENDO treating. Colonoscopy 2018. Father passed from cancerMammogram- 09/14/22 okDEXA- 06/12/19, normal bone mineral density. Had partial hysterectomy.Obese- sits all day for work. Endo wants her onGlucoma- Dr. Rivera. Jeri Laurent NP [address] [facility], [facility] [address], [place], [address], [facility] [employer] [facility] 08/19/2023 09:13:19 4 text/html Sylwia Hirsch is a 63 year female patient here to establish care. She was previously under the care of Jeri Laurent DNP who is no longer with this clinic. Her past medical history is significant for hypothyroidism. Her last TSH (08/06/23) was 0.068, per patient, this was followed up by endocrinology and the [facility] with [facility]. She is currently taking levothyroxine 150 mcg PO daily. She has a history of hypertension. Her BP on arrival today is 150/80. She does not take her blood pressure at home. She is currently taking losartan 100 mg PO daily. She has a history of hyperlipidemia. Her last lipid panel was WNLs. She is currently taking rosuvastatin 10 mg PO HS. She denies muscles cramping. She has history of vitamin D and B12 deficiencies. She is currently taking vitamin D 50,000 u PO weekly and vitamin B12 OTC. She does have glaucoma and requires multiple eye medications. These are managed by opthamology at [facility]. She is morbidly obese. She has tried numerous weight loss methods. In the past she has tried phentermine which was successful for weight loss but causes anxiety and palpitations. She is currently on Nutrisystem and doing well following a strict diet, but admits to a sedimentary life style. Flu vaccines: 3COVID vaccine: 1RSV vaccine: recommendedTdap: recommendedShingles vaccines: recommendedColonoscopy: 2019, unsure of when she is supposed to followedMammogram: 10/2023, okay for annual screeningWWE: scheduled for 08/2024Vision exam: 02/21/2024ental Exam: 01/[address]YN Boland [address], [address], [place], [address], [employer] 02/24/2024 13:04:33 4 text/html Sylwia Hirsch is She has a lump on the underside of her right breast, she feels this is decreasing in size. Diagnostic mammogram schedule for 08/10/24 She is here today to discuss dizziness. She states this started as soon as she got of bed Wednesday morning, She has had intermittent episodes since. She states this feels like she is swaying when she stands up and that her head is really heavy.Neuro exam unremarkablenystagmus present when looking to left and right supine BP on arrival 180/112, recheck was 162/102. Advised to start second BP medication, pt declines. She states she will monitor BP at home and watch salt intake.Advised if thunderclap headache, chest pain/heaviness, SOB, or worsening dizziness to go to the ER [facility] [address], [address], [place], [address], [employer] 07/06/2024 15:42:33 OBGyn Episode No OBEpisode recorded.
--- OUTSIDE RECORDS SUMMARY | 2025-03-05 09:28 | XMS_ITS | Encounter Summary ---
Author Organization [employer] [facility] Address 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
--- OUTSIDE RECORDS SUMMARY | 2025-03-05 09:28 | XMS_ITS | Clinical Summary ---
Author Organization [facility] Address [address] [place] [address] Care Team Providers Care Pharmacy Intern Name Role Phone Lisa Cain MD Primary Care Provider + Allergies No known active allergies Medications LEVOXYL 150 MCG tablet Take 1 tablet (150 mcg total) by mouth every morning. 08/30/20 04 Active latanoprost (XALATAN) 0.005 % ophthalmic solution 02/29/20 19 Active vitamin D2, ergocalciferol, (DRISDOL) 1.25 mg capsule Take 1 capsule (1.25 mg total) by mouth once a week. 10/29/20 24 Active dorzolamide-timol ol (COSOPT) 2-0.5 % Solution 02/29/20 24 Active vitamin B-12 (CYANOCOBALAMIN) (CYANOCOBALAMIN) 1000 mcg tablet Take 1 tablet (1,000 mcg total) by mouth daily. 10/30/20 24 Active nystatin (MYCOSTATIN) creamIndications: Intertrigo Apply topically 2 (two) times daily. 60 g 11 01/01/20 25 Active losartan (COZAAR) 100 MG tabletIndications :Essential hypertension Take 1 tablet (100 mg total) by mouth daily. 90 tablet 3 01/01/20 25 026 Active rosuvastatin (CRESTOR) 10 MG tabletIndications :Mixed hyperlipidemia Take 1 tablet (10 mg total) by mouth daily. 90 tablet 3 01/01/20 25 026 Active meloxicam (MOBIC) 7.5 MG tabletIndications :Acute pain of right shoulder TAKE 1 TABLET(7.5 MG) BY MOUTH DAILY 30 tablet 02/22/20 25 Active meloxicam (MOBIC) 7.5 MG tabletIndications :Acute pain of right shoulder Take 1 tablet (7.5 mg total) by mouth daily. 30 tablet 01/18/20 25 025 Discontinued Active Problems Problem Noted Date Diagnosed Date Essential hypertension 01/01/2025 Overview (01/01/2025): Takes losartan 100 mg daily. Assessment & Plan (01/01/2025 9:23 AM CIVIL ENGINEER): Not controlled today. May require additional medication. Patient will begin monitoring her home readings and updating me in the next 2 weeks. She will also have a nurse check in 2 weeks. CMP from blood work at work reviewed. Continue losartan. Hemorrhoids 01/01/2025 Hx of thyroid cancer 01/01/2025 Overview (01/01/2025): Sees pretty once a year, Dr. Manriquez, in [facility]. Had radiation. Colon polyp 12/13/2024 Acquired hypothyroidism 12/13/2024 Overview (01/01/2025): Takes levothyroxine 150 mcg daily. Assessment & Plan (01/01/2025 9:23 AM CIVIL ENGINEER): Managed by endocrinology. B12 deficiency 12/13/2024 Vitamin D deficiency 12/13/2024 Mixed hyperlipidemia 12/13/2024 Overview (01/01/2025): Takes rosuvastatin 10 mg daily. Morbid obesity 12/13/2024 Assessment & Plan (01/01/2025 9:23 AM CIVIL ENGINEER): Discussed lifestyle changes. BPPV (benign paroxysmal positional vertigo) 11/23 Overview (01/01/2025): Notes vertigo with room spinning sensation when she turns her head to the right. Occurred after recent norovirus. Assessment & Plan (01/01/2025 9:23 AM CIVIL ENGINEER): BPPV versus vestibular neuritis. Recommend occupational therapy and will treat with meclizine. Prediabetes 12/13/2024 Encounters Date Type Department Care Team Description 01/29/2025 8:00 AM CDT Allied Health/Nurse Visit [address] [place] [address] Lisa Cain MD BP Check 01/29/2025 Travel 01/18/2025 12:20 PM CIVIL ENGINEER Office Visit [address] [place] [address] Lina Ch NP Shoulder Pain (Patient presents with c/o right shoulder pain. NKI x Several weeks Throbbing pain) 01/18/2025 Travel 01/17/[address] [place] [address] Lisa Cain MD Shoulder Pain; Medication Request 01/15/2025 8:00 AM CIVIL ENGINEER Allied Health/Nurse Visit [address] [place] [address] Lisa Cain MD BP Check (Patient presents for a blood pressure check) 01/15/2025 Travel 01/01/2025 7:50 AM CIVIL ENGINEER Office Visit [address] [place] [address] Lisa Cain MD Dizziness (Patient presents to establish care with c/o dizziness) 01/01/[address] [place] [address] Lisa Cain MD Record Request 01/01/2025 Scan [facility] Scanned, [facility] 01/01/2025 Travel 12/14/2024 Scan [facility] INFO [facility] Scanned, Doc [facility] from Last 3 Months Immunizations Immunization Administration Dates Next Due FLUCELVAX (ccIIV3, TRIVALENT, 0.5mL) 09/23/2024 Influenza Adult (Generic) 08/19/2023,04/2022,09/15/2021,2020,09/05/2020,09/12/2018,09/09/2018 MODERNA COVID-19 (12+) MRNA, LNP-S, PF, 100 MCG/ 0.5 ML DOSE 02/05/2021 MODERNA COVID-19 (12+), MRNA , LNP-S, PF, 50 MCG/0.5 ML (SPIKEVAX) 08/28/2023 MODERNA COVID-19 (PROFESSIONAL PROGRAMMER ANALYST GLORIA SHANA), MRNA, LNP-S, PF, 50 MCG/ 0.25 ML DOSE 07/02/2022 Tdap (Adacel) 01/01/2025 Family History Medical History Relation Comments No Known Problems Daughter Dementia Mother brain tumor, vlad ign Hypertension Mother Vision loss Mother Blind in left ey e Hypertension Sister 1 No Known Problems Sister 2 Brain cancer Sister 3 tumor but not ma lignant? Hypertension Sister 3 Accidental Son Relation Status Comments Daughter Alive Father mesothelioma Mother Sister 1 Alive Sister 2 Alive Sister 3 Alive Son Social History Tobacco Use Types Packs/Day Years Used Date Smoking Tobacco: Never Passive Smoke Exposure: Never Smokeless Tobacco: Never Tobacco Cessation:Counseling Given: No Alcohol Use Standard Drinks/Week Comments Yes 1.7 (1 standard drink = 0.6 oz p ure alcohol) 1 glass of wine monthly PHQ-2 Answer Date Recorded Patient Health Questionnaire-2 Score 0 01/01/2025 Comments No Sex and Gender Information Value Date Recorded Sex Assigned at Not on file Legal Sex Female 9:47 AM CDT Gender Identity Not on file Sexual Orientation Not on file Last Filed Vital Signs Vital Sign Reading Time Taken Comments Blood Pressure 138/86 01/29/2025 8:09 AM CDT Pulse 84 01/18/2025 12:27 PM CIVIL ENGINEER Temperature 36.7 C (98.1 F) 01/18/2025 12:27 PM CIVIL ENGINEER Respiratory Rate 20 01/18/2025 12:2 7 PM CIVIL ENGINEER Oxygen Saturation 99% 01/18/2025 12: 27 PM CIVIL ENGINEER Inhaled Oxygen Concentration - - Weight 138.3 kg (304 lb 12.8 oz) 2024 12:27 PM CIVIL ENGINEER Height 170.2 cm (5' 7 ) 01/01/2025 8:09 AM CIVIL ENGINEER Body Mass Index 47.74 01/01/2025 8:09 AM CIVIL ENGINEER Plan of Treatment Upcoming Encounters Date Type Department Care Team (Late st Contact Info) Description 06/18/2025 7:50 AM CDT Office Visit [facility] Family Medicine - [place] [address] [place], [place] [address] Lisa Cain MD [address] [place], [place] [address] Health Maintenance Due Date Last Done Comments Hepatitis C 1980 Mammogram Screening 2002 Zoster Vaccines (1 of 2) 2012 RSV Immunization or 60+ Years (1 - Risk 60-74 years 1-dose series) 2022 Annual Physical 01/01/2026 01/01/2025 Colorectal Cancer Screening Colonoscopy (10 Years) 08/04/2029 08/04/2019 DTaP, Tdap and Td Vaccines (2 - Td or Tdap) 01/01/2035 01/01/2025 COVID-19 Vaccine Completed 09/23/2024, 05/2023, 07/02/2022, Additional history exists PHQ-2 (Physician [place]) Completed 01/01/2025 Meningococcal B Vaccine Aged Out No l onger eligible based on patient's age to complete this topic Meningococcal Vaccine Aged Out No miguel lee ann eligible based on patient's age to complete this topic Pneumococcal Vaccine: Pediatrics (0 to 5 Years) and At-Risk Patients (6 to 49 Years) Aged Out No longer eligible based on patient's age to complete this topic RSV Immunizations Under 20 Months Aged Out No longer eligible based on patient's age to complete this topic Procedures Procedure Name Priority Date/Time Associated Diagnosis Comments COLONOSCOPY GENERIC (SCAN ORDER) 08/04/2019 from Last 3 Months or Most Recently Relevant to Health Maintenance Results * COLONOSCOPY GENERIC (SCAN ORDER) (08/04/2019) 08/04/2019 us [facility] Scanned SCANNING Final Resu lt from Last 3 Months or Most Recently Relevant to Health Maintenance Insurance [employer] Care Teams Pharmacy Intern Relationship Specialty Start Date End Date Lisa Cain MD [address] [place] [address] PCP - General FAMILY PRACTICE 01/01/25
--- OUTSIDE RECORDS SUMMARY | 2025-03-05 09:28 | XMS_ITS | Encounter Summary ---
Author Organization [employer] Address [address] [place] [address] Care Team Providers Care Livestock Haulier Name Role Phone Hu Denson MD Primary Care Provider [phone] Encounter Details Date Type Department Care Team (Latest Contact Info) Description 07/31/2004 Outpatient Historical HIS PATIENT IN A BED lJuis Broderikc MD [address] 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
--- OUTSIDE RECORDS SUMMARY | 2025-03-05 09:28 | XMS_ITS | Encounter Summary ---
Author Organization [employer] [facility] Address [address] [place] [address] Care Team Providers Care Trade Promotion Analyst Name Role Phone Hu Denson MD Primary Care Provider [phone] Encounter Details Date Type Department Care Team (Latest Contact Info) Description 12/18/2005 Outpatient Historical HIS [facility] Vernon Mcfarland MD [address] [place] [address] MALIGN NEOPL THYROID (CMS/HCC) (Primary Dx) Social History Tobacco Use Types Packs/Day Years Used Date Smoking Tobacco: Never Assessed Comments Unknown Sex and Gender Information Value Date Recorded Sex Assigned at Not on file Legal Sex Female 4:28 AM SENIOR ACCOUNT MANAGER Gender Identity Not on file Sexual Orientation Not on file documented as of this encounter Plan of Treatment Not on file documented as of this encounter Procedures Procedure Name Priority Date/Time Associated Diagnosis Comments THYROGLOBULIN, TUMOR MARKER Routine 12/18/2005 2:53 PM SENIOR ACCOUNT MANAGER documented in this encounter Results * (ABNORMAL) THYROGLOBULIN (12/18/2005 2:53 PM SENIOR ACCOUNT MANAGER) THYROGLOBULIN AB <20 <20 IU/mL INT ERFACE SYSTEM Comment: Effective May 20, 2005, [facility] will replace the Cheung Advantage Anti-Thyroglobulin assay with the DPC IMMULITE 2000 Anti-Thyroglobulin assay. DPC antibody results correlate clinically with those of the Cheung Advantage but, because each patient antibody has unique binding characteristics, the actual numeric values might be different. THYROGLOBULIN <0.2(L) 2.0 - 35.0 ng/mL INTERFACE SYSTEM Comment: Additional information: Polysomnograph Tech: DPC Methodology: ERYN When monitoring patients over time, Tg values obtained with different methods cannot be used interchangeably due to the differences in method and reagent specifications. Lab test performed by: [facility] [address] [place], [place] SCOTTIE LITTLEJOHN MD 12/18/2005 2:53 PM SENIOR ACCOUNT MANAGER us Vernon Manriquez MD CHEMISTRY ORDERABLES Final Re sult INTERFACE SYSTEM Refer to clinic/hospital department documented in this encounter Visit Diagnoses Diagnosis Malignant neoplasm of thyroid gland (CMS/HCC)- Primary Malignant neoplasm of thyroid gland documented in this encounter Care Teams Trade Promotion Analyst Relationship Specialty Start Date End Date Hu Denson MD [address] [address] PCP - General 09/04/04 documented as of this encounter
--- OUTSIDE RECORDS SUMMARY | 2025-03-05 09:28 | XMS_ITS | Encounter Summary ---
Author Organization [employer] Address [address] [place] [address] Care Team Providers Care Training Developer Name Role Phone Hu Denson MD Primary Care Provider [phone] Encounter Details Date Type Department Care Team (Latest Contact Info) Description 09/18/2004 Outpatient Historical HIS [facility] Gia Abbasi MALIGN NEOPL THYROID (CMS/HCC) (Primary Dx) Social History Tobacco Use Types Packs/Day Years Used Date Smoking Tobacco: Never Assessed Comments Unknown Sex and Gender Information Value Date Recorded Sex Assigned at Not on file Legal Sex Female 4:28 AM PERSONNEL SECURITY SPECIALIST Gender Identity Not on file Sexual Orientation Not on file documented as of this encounter Plan of Treatment Not on file documented as of this encounter Visit Diagnoses Diagnosis Malignant neoplasm of thyroid gland (CMS/HCC)- Primary Malignant neoplasm of thyroid gland documented in this encounter Care Teams Training Developer Relationship Specialty Start Date End Date Hu Denson MD [address] [place] [address] [address] [place] [address] PCP - General 09/04/04 documented as of this encounter
--- OUTSIDE RECORDS SUMMARY | 2025-03-05 09:28 | XMS_ITS | Encounter Summary ---
Author Organization [employer] Address [address] [place] [address] Care Team Providers Care Historian Research Assistant Name Role Phone Hu Denson MD Primary Care Provider [phone] Encounter Details Date Type Department Care Team (Latest Contact Info) Description 12/16/2005 Outpatient Historical HIS [facility] Vernon Manriquez MD [address] [facility] [address] [place] [address] MALIGN NEOPL THYROID (CMS/HCC) (Primary Dx) Social History Tobacco Use Types Packs/Day Years Used Date Smoking Tobacco: Never Assessed Comments Unknown Sex and Gender Information Value Date Recorded Sex Assigned at Not on file Legal Sex Female 4:28 AM MIDDLE SCHOOL PE TEACHER Gender Identity Not on file Sexual Orientation Not on file documented as of this encounter Plan of Treatment Not on file documented as of this encounter Visit Diagnoses Diagnosis Malignant neoplasm of thyroid gland (CMS/HCC)- Primary Malignant neoplasm of thyroid gland documented in this encounter Care Teams Historian Research Assistant Relationship Specialty Start Date End Date Hu Denson MD [facility] [facility] [place] [address] PCP - General 09/04/04 documented as of this encounter
--- OUTSIDE RECORDS SUMMARY | 2025-03-05 09:28 | XMS_ITS | CONTINUITY OF CARE DOCUMENT ---
Author Name agusto liz Address Unknown Organization [facility] Address [address] [facility] [address] [place] [address] Phone [phone] Care Team Providers Care Route Sales Representative Name Role Phone Parul SOTO, [facility] Unavailable BARBY COSME MD Unavailable BARBY COSME MD Unavailable [phone] INSURANCE PROVIDERS Payer name Policy type / Coverage type [place] red green [id number]
--- OUTSIDE RECORDS SUMMARY | 2025-03-05 09:28 | XMS_ITS | Clinical Summary ---
Author Organization [facility] Address [address] [place] [address] Phone Care Team Providers Care Packing Room Supervisor Name Role Phone Hu Denson MD Primary Care Provider [phone] Social History Tobacco Use Types Packs/Day Years Used Date Smoking Tobacco: Never Assessed Comments Unknown Sex and Gender Information Value Date Recorded Sex Assigned at Not on file Legal Sex Female 4:28 AM YOGA TEACHER Gender Identity Not on file Sexual Orientation Not on file Plan of Treatment Health Maintenance Due Date Last Done Comments DTAP/TDAP/TD VACCINES (1 - Tdap) 1981 HPV/Cotest (21-29) 1983 PAP SMEAR 1983 CERVICAL CANCER SCREENING 1992 HPV/Cotest (30-65) 1992 PAP SMEAR 1992 BREAST CANCER SCREENING 2002 COLORECTAL SCREENING 2007 Colorectal Cancer Screening 2007 FIT-DNA Q 3 years 2007 FIT/FOBT Q 1 year 2007 Flex Sig/CT Colonography Q 5 years 2007 ZOSTER VACCINE (1 of 2) 2012 INFLUENZA VACCINE (#1) 2024 RSV VACCINE (60+ or ) (1 - 1-dose 75+ series) 2037 Care Teams Packing Room Supervisor Relationship Specialty Start Date End Date Hu Denson MD [address] [facility] [address] [place] [address] PCP - General 09/04/04
--- OUTSIDE RECORDS SUMMARY | 2025-03-05 09:28 | XMS_ITS | Encounter Summary ---
Author Organization [employer] Address [address] [place] [address] Care Team Providers Care Ironing Pleater Name Role Phone Hu Denson MD Primary Care Provider [phone] Encounter Details Date Type Department Care Team (Latest Contact Info) Description 07/14/2002 Outpatient Historical HIS [facility] Travis Le MD [address] [facility] [address] [address] SCREENING MAMM-MAILG NEOPL-OTHER (Primary Dx) Social History Tobacco Use Types Packs/Day Years Used Date Smoking Tobacco: Never Assessed Comments Unknown Sex and Gender Information Value Date Recorded Sex Assigned at Not on file Legal Sex Female 4:28 AM PROJECT SUPERINTENDENT Gender Identity Not on file Sexual Orientation Not on file documented as of this encounter Plan of Treatment Not on file documented as of this encounter Visit Diagnoses Diagnosis Other screening mammogram- Primary documented in this encounter Care Teams Ironing Pleater Relationship Specialty Start Date End Date Hu Denson MD [address] [place] [address] [address] [place] [address] PCP - General 09/04/04 documented as of this encounter
--- OUTSIDE RECORDS SUMMARY | 2025-03-05 09:28 | XMS_ITS | Encounter Summary ---
Author Organization [employer] [facility] Address [address] [place] [address] Care Team Providers Care Social Media Job Titles Name Role Phone Hu Denson MD Primary Care Provider [phone] Encounter Details Date Type Department Care Team (Latest Contact Info) Description 08/08/2004 Outpatient Historical HIS [facility] Jluis Mondragon MD [address] [facility] [address] [address] NONTOX UNINODULAR GOITER (Primary Dx) Social History Tobacco Use Types Packs/Day Years Used Date Smoking Tobacco: Never Assessed Comments Unknown Sex and Gender Information Value Date Recorded Sex Assigned at Not on file Legal Sex Female 4:28 AM COPY CLERK Gender Identity Not on file Sexual Orientation Not on file documented as of this encounter Plan of Treatment Not on file documented as of this encounter Visit Diagnoses Diagnosis Nontoxic uninodular goiter- Primary documented in this encounter Care Teams Social Media Job Titles Relationship Specialty Start Date End Date Hu Denson MD [address] [facility] [address] [place] [address] PCP - General 09/04/04 documented as of this encounter"
--- OUTSIDE RECORDS SUMMARY | 2025-03-05 09:28 | XMS_ITS | Encounter Summary ---
Author Organization [employer] Address [address] [place] [address] Care Team Providers Care Admissions Rn Name Role Phone Hu Denson MD Primary Care Provider [phone] Encounter Details Date Type Department Care Team (Latest Contact Info) Description 09/04/2004 Outpatient Historical HIS [facility] Vernon Manriquez MD [address] [facility]. [facility] [place] [address] [place] [address] HYPOTHYROIDISM NOS (Primary Dx) Social History Tobacco Use Types Packs/Day Years Used Date Smoking Tobacco: Never Assessed Comments Unknown Sex and Gender Information Value Date Recorded Sex Assigned at Not on file Legal Sex Female 4:28 AM SISAL PICKER Gender Identity Not on file Sexual Orientation Not on file documented as of this encounter Plan of Treatment Not on file documented as of this encounter Visit Diagnoses Diagnosis Unspecified hypothyroidism- Primary documented in this encounter Care Teams Admissions Rn Relationship Specialty Start Date End Date Hu Denson MD [address] [place] [address] [address] [place] [address] PCP - General 09/04/04 documented as of this encounter
--- OUTSIDE RECORDS SUMMARY | 2025-03-05 09:28 | XMS_ITS | Encounter Summary ---
Author Organization [facility] Address [address] [place] [address] Care Team Providers Care Twine Winder Name Role Phone Hu Denson MD Primary Care Provider [phone] Encounter Details Date Type Department Care Team (Late st Contact Info) Description 07/10/2002 Outpatient Historical [facility] PILOT BOAT CAPTAIN - [address] [place] [address] Travis Wick MD [address] [facility] [address] [address] [address] Social History Tobacco Use Types Packs/Day Years Used Date Smoking Tobacco: Never Assessed Comments Unknown Sex and Gender Information Value Date Recorded Sex Assigned at Not on file Legal Sex Female 4:28 AM CLOTH BIN PACKER Gender Identity Not on file Sexual Orientation Not on file documented as of this encounter Plan of Treatment Not on file documented as of this encounter Visit Diagnoses Not on filedocumented in this encounter Care Teams Twine Winder Relationship Specialty Start Date End Date Hu Denson MD [facility] [facility] [address] [place] [address] PCP - General 09/04/04 documented as of this encounter
--- OUTSIDE RECORDS SUMMARY | 2025-03-05 09:28 | XMS_ITS | Encounter Summary ---
Author Organization [facility] Address [address] [place] [address] Care Team Providers Care City Planning Aide Name Role Phone Hu Denson MD Primary Care Provider [phone] Encounter Details Date Type Department Care Team (Latest Contact Info) Description 06/06/2005 Outpatient Historical HIS [facility] Travis England MD [address] [facility] [address] [address] SCREENING MAMM-MAILG NEOPL-OTHER (Primary Dx) Social History Tobacco Use Types Packs/Day Years Used Date Smoking Tobacco: Never Assessed Comments Unknown Sex and Gender Information Value Date Recorded Sex Assigned at Not on file Legal Sex Female 4:28 AM MACHINE SET UP OPERATOR PAPER 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
--- OUTSIDE RECORDS SUMMARY | 2025-03-05 09:28 | XMS_ITS | Encounter Summary ---
[facility] Organization [facility] Address [address] [place] [address] Care Team Providers Care Seed Core Operator Name Role Phone Hu Denson MD Primary Care Provider [phone] Encounter Details Date Type Department Care Team (Latest Contact Info) Description 09/04/2004 Outpatient Historical HIS [facility] Manriquze, Vernon Butler MD [address] [facility]. [address] [place] [address] HYPOTHYROIDISM NOS (Primary Dx) Social History Tobacco Use Types Packs/Day Years Used Date Smoking Tobacco: Never Assessed Comments Unknown Sex and Gender Information Value Date Recorded Sex Assigned at Not on file Legal Sex Female 4:28 AM RN CRITICAL CARE Gender Identity Not on file Sexual Orientation Not on file documented as of this encounter Plan of Treatment Not on file documented as of this encounter Visit Diagnoses Diagnosis Unspecified hypothyroidism- Primary documented in this encounter Care Teams Seed Core Operator Relationship Specialty Start Date End Date Hu Denson MD [address] [place] [address] [address] [place] [address] PCP - General 09/04/04 documented as of this encounter
--- OUTSIDE RECORDS SUMMARY | 2025-03-05 09:28 | XMS_ITS | Encounter Summary ---
Author Organization [facility] Address [address] [place] [address] Care Team Providers Care Repack Room Worker Name Role Phone Hu Denson MD Primary Care Provider [phone] Encounter Details Date Type Department Care Team (Latest Contact Info) Description 09/08/2004 Outpatient Historical HIS [facility] Abbasi ENDOCRINE/NERV ASHOK NOS (Primary Dx) Social History Tobacco Use Types Packs/Day Years Used Date Smoking Tobacco: Never Assessed Comments Unknown Sex and Gender Information Value Date Recorded Sex Assigned at Not on file Legal Sex Female 4:28 AM LOTUS NOTES ADMINISTRATOR Gender Identity Not on file Sexual Orientation Not on file documented as of this encounter Plan of Treatment Not on file documented as of this encounter Visit Diagnoses Diagnosis 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
--- OUTSIDE RECORDS SUMMARY | 2025-03-05 09:28 | XMS_ITS | Encounter Summary ---
Author Organization [facility] Address 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
== END 2025-03-05 08:56 | disposition home or self-care (01) ==
LOC: ANHIMG 08:58
PROVIDERS: PCP Student in an Organized Health Care Education/Training Program; Visit Provider Student in an Organized Health Care Education/Training Program
DX: Z12.31 Encounter for screening mammogram for malignant neoplasm of breast (principal)
CPT/HCPCS: 77063; 77067